=== PATIENT | male | born 1955 | race Asian ===

== ENCOUNTER 2019-10-28 15:01 | Emergency (ER) | payer OTHER ==
[2019-10-28 15:20] VITALS: BP 139/83; PULSE 89; TEMP 98.9; BMI 28.5
[2019-10-28] MEDS ORDERED: LIDOCAINE 2.5%/PRILOCAINE 2.5% 30 GRAM TUBE TP ONE (17:01)
[2019-10-28] MEDS ORDERED: IBUPROFEN 400 MG TABLET (FP) PO ONE ×2 (17:21→17:37)
--- NOTE | 2019-10-28 17:21 | PDOC ---
History of Present Illness - General Chief Complaint: Rectal Bleed Stated Complaint: RECTAL BLEED Time Seen by Provider: 10/28/19 15:32 - History of Present Illness Initial Comments: HPI Pt is a 64 yo M with PMH of HTN, HLD, NIDDM, L sided nephrolithiasis in the past, external hemorrhoid (s/p resection many years ago) presenting with 2 month hx of rectal bleeding/pain and perineal pain. Rectal Bleeding/Pain: Pt reports rectal bleeding and rectal pain started gradually about 2 months ago. The pain was mild at first and gradually worsened; pain is now severe (10/10) and makes it difficult to sit. Bleeding is described as streaks on stool and small drops of blood in the toilet. Pt also reports noticing small amounts of blood in his underwear as well. Associated increased constipation (hard stool, BMs every 3 days instead of baseline daily) over same duration. Pt has tried sitz baths (3-4 times daily) and has utilized advil and recent short course of toradol (2-3 doses) with some relief; put the pain has persisted. Pt has taken some oral stool softeners, preparation H, and some oral remedies as well. All with only some relief of his symptoms. Denies diarrhea, fevers, chills, CP, SOB, nausea, vomiting, or abdominal pain. Perineal Pain: Pt report perineal pain that started gradually about 2 mounth ago. The pain is moderate to severe in intensity and intermittent; with radiation to scrotal area. Pt describes the pain as internal and not really painful to touch. Pain is worsen when seated and lying down. Pt reports that the pain is very bothersome while he is sleeping. Pt's reports that there was possible mild swelling of perineal and scrotal area several weeks ago which resolved spontaneously. Pt reports he is also having increased straining with urination as well. No associated penile discharge, STI history, dysuria, or urinary frequency. PMHX: as in HPI - ongoing outpatient workup for hematuria and BPH with urology; scheduled for CT A/P + Bladder U/S for urology tomorrow PSHX: as in HPI Meds: Home Medications Medication Instructions Recorded Aspirin [ASA -] 81 mg PO DAILY 11/04/13 Glyburide/Metformin HCl 1 each PO TID 11/04/13 [Glyburide-Metformin 5-500 mg] Losartan Potassium 50 mg PO DAILY 11/04/13 Simvastatin [Zocor -] 20 mg PO HS 11/04/13 Tamsulosin HCl [Flomax] 0.4 mg PO HS #30 capsule 11/04/13 Allergies: amoxicillin Tob: 1 ppd x 30 years; no longer smoking, vapes as a substitute Etoh: stopped drinking alcohol 3 months ago; used to drink "small amount of Whiskey on the rocks" daily Rec drugs: denies PCP: Dr. Ebony MELTON GENERAL/CONSTITUTIONAL: No fever or chills. No weakness. HEAD, EYES, EARS, NOSE AND THROAT: No change in vision. No ear pain or discharge. No sore throat. CARDIOVASCULAR: No chest pain or shortness of breath RESPIRATORY: No cough, wheezing, or hemoptysis. GASTROINTESTINAL: No nausea, vomiting, diarrhea. + constipation, + rectal bleeding GENITOURINARY: No dysuria, frequency, + increased straining, + increased perineal pain MUSCULOSKELETAL: No joint or muscle swelling or pain. No neck or back pain. SKIN: No rash NEUROLOGIC: No headache, vertigo, loss of consciousness, or change in strength/sensation. ENDOCRINE: No increased thirst. No abnormal weight change HEMATOLOGIC/LYMPHATIC: No anemia, easy bleeding, or history of blood clots. ALLERGIC/IMMUNOLOGIC: No hives or skin allergy. PE GENERAL: Awake, alert, and fully oriented, in no acute distress HEAD: No signs of trauma, normocephalic, atraumatic EYES: PERRLA, EOMI, sclera anicteric, conjunctiva clear ENT: Auricles normal inspection, hearing grossly normal, nares patent, oropharyn x clear without exudates. Moist mucosa NECK: Normal ROM, supple, no lymphadenopathy, JVD, or masses LUNGS: No distress, speaks full sentences, clear to auscultation bilaterally HEART: Regular rate and rhythm, normal S1 and S2, no murmurs, rubs or gallops, peripheral pulses normal and equal bilaterally. ABDOMEN: Soft, nontender, normoactive bowel sounds. No guarding, no rebound. No masses MELL: soft, mobile tender non-bleeding, non-thrombosed external hemorrhoid @ 11 oclock; no other external abnormalities noted; good rectal tone; scant stool in rectal vault; soft, mobile tender and bleeding internal hemorrhoid @ 12 oclock; jose j blood from internal hemorrhoid appreciated. : no scrotal edema, no scrotal tenderness, no masses palpated; no perineal tenderness; no erythema or other discoloration appreciated EXTREMITIES : Normal inspection, Normal range of motion, no edema. No clubbing or cyanosis. NEUROLOGICAL: Cranial nerves II through XII grossly intact. Normal speech, normal gait, no focal sensorimotor deficits SKIN: Warm, Dry, normal turgor, no rashes or lesions noted 10/28/19 18:02 10/28/19 18:10 Past History - Medical History Allergies/Adverse Reactions: Allergies Allergy/AdvReac Type Severity Reaction Status Date / Time amoxicillin Allergy Verified 10/28/19 15:14 Home Medications: Ambulatory Orders Aspirin [ASA -] 81 mg PO DAILY 11/04/13 Glyburide/Metformin HCl [Glyburide-Metformin 5-500 mg] 1 each PO TID 11/04/13 Losartan Potassium 50 mg PO DAILY 11/04/13 Simvastatin [Zocor -] 20 mg PO HS 11/04/13 Tamsulosin HCl [Flomax] 0.4 mg PO HS #30 capsule 11/04/13 Hydrocortisone 2.5% Topical Cr [Anusol 2.5% Hc Cream -] 1 applic RC BID #1 tube 10/28/19 Lidocaine [Hemorrhoidal Relief] 30 gm TP Q4HWA PRN #1 cream..g. 10/28/19 Sennosides/Docusate Sodium [Senokot-S Tablet] 2 each PO HS PRN 7 Days #14 tablet 10/28/19 COPD: No Diabetes: Yes HTN: Yes Hypercholesterolemia: Yes Kidney Stones: Yes - Immunization History Immunization Up to Date: Yes - Psycho-Social/Smoking History Smoking History: Current every day smoker Have you smoked in the past 12 months: No Number of Cigarettes Smoked Daily: 10 Information on smoking cessation initiated: No - Substance Abuse Hx (Audit-C & DAST Scrn) How often the patient has a drink containing alcohol: Never Score: In Men: 4 or > Positive; In Women: 3 or > Positive: 0 Screen Result (Pos requires Nsg. Audit-10AR): Negative In the last yr the pt used illegal drug/Rx for NonMed reason: No Score: Yes response is considered Positive: 0 Screen Result (Positive result requires Nsg. DAST-10): Negative *Physical Exam - Vital Signs Last Vital Signs Temp Pulse Resp BP Pulse Ox 98.9 F 89 20 139/83 100 10/28/19 15:14 10/28/19 15:14 10/28/19 15:14 10/28/19 15:14 10/28/19 15:14 ED Treatment Course - LABORATORY CBC & Chemistry Diagram: 10/28/19 16:30 10/28/19 16:30 - RADIOLOGY Radiology Studies Ordered: Category Date Time Status SCROTUM AND CONTENTS US [US] Stat Ultrasound 10/28/19 17:00 Ordered Medical Decision Making - Medical Decision Making MDM Pt is a 64 yo M with PMH of HTN, HLD, NIDDM, L sided nephrolithiasis in the past, external hemorrhoid (s/p resection many years ago) presenting with 2 month hx of rectal bleeding/pain and perineal pain. Eval significant for external hemorrhoid and bleeding internal hemorrhoid. Guaiac is positive, but no hematochezia, melena or tarry stools DDX including but not limited to: external hemorrhoid, internal hemorrhoid W/U: -CBC, CMP, FOBT -scrotal US TX: - motrin for pain - emla topical for analgesia - anticipate discharge with GI follow up; improved analgesia regimen 10/28/19 18:12 Scrotal US - with mild hydroceles and mild epididymal cysts; pt will follow up with his urologists regarding this Pt is being discharged with outpatient follow up 10/28/19 19:46 Discharge - Discharge Information Problems reviewed: Yes Clinical Impression/Diagnosis: Hemorrhoid, Bleeding internal hemorrhoids, External hemorrhoids without com plication Condition: Good Disposition: HOME - Admission No - Additional Discharge Information Prescriptions: Hydrocortisone 2.5% Topical Cr [Anusol 2.5% Hc Cream -] 1 applic RC BID #1 tube Lidocaine [Hemorrhoidal Relief] 30 gm TP Q4HWA PRN #1 cream..g. PRN Reason: Pain Level 7 - 10 Sennosides/Docusate Sodium [Senokot-S Tablet] 2 each PO HS PRN 7 Days #14 tablet PRN Reason: Constipation - Follow up/Referral Referrals: Reji Perales DO [Staff Physician] - Carlos Alberto Posada MD [Staff Physician] - Hetal Matamoros MD [Staff Physician] - Michael Blanco MD [Staff Physician] - Maggie May DO [Staff Physician] - Ebony Vincent MD [Primary Care Provider] - - Patient Discharge Instructions Patient Printed Discharge Instructions: DI for Hemorrhoids, DI for Rectal Bleeding Additional Instructions: You were seen in the ED for complaints of rectal bleeding/pain + iris yesenia/scrotal pain. In the ED you were evaluated with a rectal examination, CBC, CMP, and stool for occult blood. Also with a scrotal US. Your results showed + blood in stool; CBC with normal Hemoglobin levels. Scrotal US with findings shown on printout - follow up with Urology. There does not appear to be an acute need for immediate hospitalization. You are advised to follow up with your Primary Care Physician within 1 week. You were given a referral to Dr. Blanco, a GI doctor. Please follow up with him within 1 week. Follow up with your Urologist, Dr. Posada within 1 week. You were given a prescription for Anusol, Senokot, and Topical Lidocaine. Please return to the ED if significant increase in pain and bleeding from rectal area or significant increase in pain in scrotal/perineal area, or swelling/discoloration of scrotum. - Post Discharge Activity
--- NOTE | 2019-10-28 18:03 | PDOC ---
Documentation entered by Willie Dixon SCRIBE, acting as scribe for Luz Maria Andre MD. Luz Maria Andre MD: This documentation has been prepared by the Elizabeth lyons inWillie SCRIBE, under my direction and personally reviewed by me in its entirety. I confirm that the documentation accurately reflects all work, treatment, procedures, and medical decision making performed by me. Attending Attestation - Resident Resident Name: RadhaRena askew - ED Attending Attestation I have performed the following: I have examined & evaluated the patient, The case was reviewed & discussed with the resident, I agree w/resident's findings & plan, Exceptions are as noted - HPI HPI: 10/28/19 17:39 The patient is a 64 year old male with a significant past medical history of diabetes, HTN, HLD, left sided kidney stones, right staghorn calculus surgery, and external hemorrhoid (s/p former resection) who presents to the emergency department for evaluation of worsening rectal bleeding that began two months ago. The patient reports streaks of blood in his stool, the toilet, and his clothing. He endorses associated constipation and worsening rectal and perineal pain that is now 10/10 and makes sitting difficult. The patient notes taking Advil and sitz baths. Denies fever, chills, chest pain, SOB, palpitation, dizziness, weakness, N, V, D, abdominal pain, bladder problems, focal weakness/paresthesias, leg swe lling/pain, rash. No sick contacts or travel. No new changes in medications. No suspicious food intake Allergies: amoxicillin Past Medical History/PSH: diabetes, HTN, HLD, left sided kidney stones, right staghorn calculus surgery, and external hemorrhoid (s/p former resection) Social history: Lives with family. No tobacco, ETOH or drug use. Meds: as documented in EMR Family history: noncontributory PMD: Dr. Vincent - Physicial Exam PE: 10/28/19 17:14 General: Well appearing, awake and alert, NAD. HEENT: NCAT, PERRL, EOMI, clear conjunctiva, anicteric, moist mucus membranes, clear oropharynx, no oral lesions.. Neck: neck supple, FROM Resp: CTAB, normal and even respirations, no respiratory distress CVS: RRR, no murmurs, 2+ peripheral pulses throughout, no peripheral edema Abdomen: soft, NTND, no rebound or guarding. No CVAT. Rectal: internal hemorrhoid with some bleeding at 12 o'clock. external soft nonthrombosed hemorrhoid at 11 oclock position enlarged prostate : right testicular/perineal tenderness, normal lie, no effusion or swelling or scrotal discoloration Back: nontender, normal inspection and ROM MSK: no edema, CHAPIN x4, ROM intact. No clubbing or cyanosis. normal bulk and tone. Extremities: no calf tenderness Neuro: alert, oriented appropriately; no focal neurologic deficits Psych: Calm and cooperative Skin: warm and well perfused, cap refill <2 sec, normal color 10/28/19 18:01 - Medical Decision Making 10/28/19 18:02 Vital Signs Temp Pulse Resp BP Pulse Ox 98.9 F 89 20 139/83 100 10/28/19 15:14 10/28/19 15:14 10/28/19 15:14 10/28/19 15:14 10/28/19 15:14 pt likely with hemorrhoidal bleed, +tender internal hemorrhoid palpated at 12 oclock position check labs and lytes cbc NORMAL. Cr is baseline. 1.4 guaiac is positive, but no hematochezia, melena or tarry stools no active bleeding. +hemorrhoid is palpated internally and quite tender with scant bleeding. no abdominal tenderness check scrotal ultrasound unremarkable, b/l small hydrocele and epididymal cysts - can follow up with urology tomorrow. anticipate discharge with GI followup/referrals and analgesia regimen rx anusol, lidocaine via rectum for analgesia, otc analgesia no opioids, as risk of constipation and worsening hemorrhoids 10/28/19 19:00 10/28/19 19:25 Discharge - Discharge Information Problems reviewed: Yes Clinical Impression/Diagnosis: Hemorrhoid, Bleeding internal hemorrhoids, External hemorrhoids without complication Condition: Good Disposition: HOME - Additional Discharge Information Prescriptions: Hydrocortisone 2.5% Topical Cr [Anusol 2.5% Hc Cream -] 1 applic RC BID #1 tube Lidocaine [Hemorrhoidal Relief] 30 gm TP Q4HWA PRN #1 cream..g. PRN Reason: Pain Level 7 - 10 Sennosides/Docusate Sodium [Senokot-S Tablet] 2 each PO HS PRN 7 Days #14 tablet PRN Reason: Constipation - Follow up/Referral Referrals: Michael Blanco MD [Staff Physician] - Ebony Vincent MD [Primary Care Provider] - Hetal Matamoros MD [Staff Physician] - Reji Perales DO [Staff Physician] - Maggie May DO [Staff Physician] - Carlos Alberto Posada MD [Staff Physician] - - Patient Discharge Instructions Patient Printed Discharge Instructions: DI for Hemorrhoids, DI for Rectal Bleeding Additional Instructions: You were seen in the ED for complaints of rectal bleeding/pain + perineal/scrotal pain. In the ED you were evaluated with a rectal examination, CBC, CMP, and stool for occult blood. Also with a scrotal US. Your results showed + blood in stool; CBC with normal Hemoglobin levels. Scrotal US with findings shown on printout - follow up with Urology. There does not appear to be an acute need for immediate hospitalization. You are advised to follow up with your Primary Care Physician within 1 week. You were given a referral to Dr. Blanco, a GI doctor. Please follow up with him within 1 week. Follow up with your Urologist, Dr. Posada within 1 week. You were given a prescription for Anusol, Senokot, and Topical Lidocaine. Please return to the ED if significant increase in pain and bleeding from rectal area or significant increase in pain in scrotal/perineal area, or swelling/discoloration of scrotum. - Post Discharge Activity
[2019-10-28 18:22] LABS: BASO % 0.5 % (0-2.0); EOS % 0.8 % (0-4.5); HEMATOCRIT 38.2 % (35.4-49); HEMOGLOBIN 12.9 GM/dL (11.7-16.9); LYMPH % 23.2 % (8-40); MCH 30.1 pg (25.7-33.7); MCHC 33.7 g/dl (32.0-35.9); MEAN CELL VOLUME 89.2 fl (80-96); MEAN PLT VOLUME 9.3 fl (7.5-11.1); MONO % 8.9 % (3.8-10.2); NEUT % 66.6 % (42.8-82.8); PLATELET COUNT 261 K/MM3 (134-434); RBC 4.28 M/mm3 (4.00-5.60); RDW 13.1 % (11.9-15.9); WHITE BLOOD COUNT 6.9 K/mm3 (4.0-10.0)
[2019-10-28 18:55] LABS: ALBUMIN 3.7 g/dl (3.4-5.0); BILIRUBIN,TOTAL 0.4 mg/dL (0.2-1); BLOOD UREA NITROGEN 19.8 mg/dL (7-18); CREATININE 1.4 mg/dL (0.55-1.3); POTASSIUM 4.3 mmol/L (3.5-5.1); TOT PROT 6.8 g/dl (6.4-8.2)
[2019-11-01] MEDS ORDERED: MORPHINE SULFATE 2 MG/ML VIAL ONE (16:39)
[2019-11-01] MEDS ORDERED: ACETAMINOPHEN INJECTION 100 ML IVPB ONE (16:39)
== END 2019-10-28 20:40 | disposition home or self-care (01) ==
LOC: JER 15:01
DX: K64.8 Other hemorrhoids (principal)
CPT/HCPCS: 36415; 76870-TC; 80053; 82272; 85025; 99283-25

== ENCOUNTER 2019-11-01 12:16 | Emergency (ER) | payer OTHER ==
[2019-11-01 12:22] VITALS: BP 129/84; PULSE 82; TEMP 98.4; BMI 28.1
--- NOTE | 2019-11-01 12:22 | PDOC ---
Rapid Medical Evaluation Chief Complaint: Pain Time Seen by Provider: 11/01/19 12:18 Medical Evaluation: Allergies Allergy/AdvReac Type Severity Reaction Status Date / Time amoxicillin Allergy Verified 11/01/19 12:18 11/01/19 12:19 I have performed a brief in-person evaluation of this patient. The patient presents with a chief complaint of: h/o hemorrhoids recently for bleeding hemorrhoids present with complains of rectal pain keeping him up at night. pt was supposed to f/u with PCP but has not followed up. pt also report unable to void freely without taking flomax. pt with h/o BPH. Denies rectal bleeding now Pertinent physical exam findings: A&O x 3 in NAD. Afebrile I have ordered the following: deferred The patient will proceed to the ED for further evaluation. Discharge Disposition - Diagnosis Rectal pain Hemorrhoid Qualifiers: Hemorrhoid type: unspecified Qualified Code(s): K64.9 - Unspecified hemorrhoids - Discharge Dispostion Condition at time of disposition: Stable - Referrals - Patient Instructions - Post Discharge Activity
--- NOTE | 2019-11-01 13:26 | PDOC ---
History of Present Illness <Luz Maria Andre - Last Filed: 11/01/19 15:48> - General History Source: Patient Exam Limitations: No Limitations <Kady Perez - Last Filed: 11/01/19 15:59> - General Chief Complaint: Pain, Acute Stated Complaint: RECTAL BLEEDING Time Seen by Provider: 11/01/19 12:18 Past History <Luz Maria Andre - Last Filed: 11/01/19 15:48> - Travel History Traveled outside of the country in the last 30 days: No Close contact w/someone who was outside of country & ill: No - Medical History COPD: No Diabetes: Yes HTN: Yes Hypercholesterolemia: Yes Kidney Stones: Yes - Immunization History Immunization Up to Date: Yes - Psycho-Social/Smoking History Smoking History: Current every day smoker Have you smoked in the past 12 months: No Number of Cigarettes Smoked Daily: 10 Information on smoking cessation initiated: No - Substance Abuse Hx (Audit-C & DAST Scrn) How often the patient has a drink containing alcohol: Never Score: In Men: 4 or > Positive; In Women: 3 or > Positive: 0 Screen Result (Pos requires Nsg. Audit-10AR): Negative In the last yr the pt used illegal drug/Rx for NonMed reason: No Score: Yes response is considered Positive: 0 Screen Result (Positive result requires Nsg. DAST-10): Negative <Kady Perez - Last Filed: 11/01/19 15:59> - Medical History Allergies/Adverse Reactions: Allergies Allergy/AdvReac Type Severity Reaction Status Date / Time amoxicillin Allergy Verified 11/01/19 12:18 Home Medications: Ambulatory Orders Aspirin [ASA -] 81 mg PO DAILY 11/04/13 Glyburide/Metformin HCl [Glyburide-Metformin 5-500 mg] 1 each PO TID 11/04/13 Losartan Potassium 50 mg PO DAILY 11/04/13 Simvastatin [Zocor -] 20 mg PO HS 11/04/13 Tamsulosin HCl [Flomax] 0.4 mg PO HS #30 capsule 11/04/13 Hydrocortisone 2.5% Topical Cr [Anusol 2.5% Hc Cream -] 1 applic RC BID #1 tube 10/28/19 Lidocaine [Hemorrhoidal Relief] 30 gm TP Q4HWA PRN #1 cream..g. 10/28/19 Sennosides/Docusate Sodium [Senokot-S Tablet] 2 each PO HS PRN 7 Days #14 tablet 10/28/19 Review of Systems - Review of Systems Able to Perform ROS?: Yes Comments:: 11/01/19 13:52 CONSTITUTIONAL: Absent: fever, chills, diaphoresis, generalized weakness, malaise, loss of appetite HEENT: Absent: rhinorrhea, nasal congestion, throat pain, throat swelling, difficulty swallowing, mouth swelling, ear pain, eye pain, visual Changes CARDIOVASCULAR: Absent: chest pain, loss of consciousness, palpitations, irregular heart rate, peripheral edema RESPIRATORY: Absent: cough, shortness of breath, dyspnea with exertion, orthopnea, wheezing, stridor, hemoptysis GASTROINTESTINAL: Present: rectal pain Absent: abdominal pain, abdominal distension, nausea, vomiting, diarrhea, constipation, melena, hematochezia GENITOURINARY: Absent: dysuria, frequency, urgency, hesitancy, hematuria, flank pain, genital pain MUSCULOSKELETAL: Absent: myalgia, arthralgia, joint swelling SKIN: Absent: rash, itching, pallor HEMATOLOGIC/IMMUNOLOGIC: Absent: easy bleeding, easy bruising, lymphadenopathy, frequent infections ENDOCRINE: Absent: unexplained weight gain, unexplained weight loss, heat intolerance, cold intolerance NEUROLOGIC: Absent: headache, focal weakness or paresthesias, dizziness, unsteady gait, seizure, mental status changes, bladder or bowel incontinence PSYCHIATRIC: Absent: anxiety, depression, suicidal or homicidal ideation, hallucinations. Is the patient limited Nepali proficient: No <Kady Perez - Last Filed: 11/01/19 15:59> *Physical Exam - Vital Signs Last Vital Signs Temp Pulse Resp BP Pulse Ox 98.4 F 82 20 129/84 100 11/01/19 12:20 11/01/19 12:20 11/01/19 12:20 11/01/19 12:20 11/01/19 12:20 <Luz Maria Andre - Last Filed: 11/01/19 15:48> - Vital Signs Last Vital Signs Temp Pulse Resp BP Pulse Ox 98.4 F 82 20 129/84 100 11/01/19 12:20 11/01/19 12:20 11/01/19 12:20 11/01/19 12:20 11/01/19 12:20 - Physical Exam 11/01/19 15:52 GENERAL: Well developed, well nourished. Awake and alert. No acute distress. HEENT: Normocephalic, atraumatic. PERRLA, EOMI. No conjunctival pallor. Sclera are non- icteric. Moist mucous membranes. NECK: Supple. Full ROM. No lymphadenopathy. CARDIOVASCULAR: Regular rate and rhythm. No murmurs, rubs, or gallops. Distal pulses are 2+ and symmetric. PULMONARY: No evidence of respiratory distress. Lungs clear to auscultation bilaterally. No wheezing, rales or rhonchi. ABDOMINAL: Soft. Non-tender. Non-distended. No rebound or guarding. No organomegaly. Normoactive bowel sounds. RECTAL: External hemorrhoid present at the 12 o'clock position; Hard non-mobile internal mass at the 12 O'clock position. No Lex blood MUSCULOSKELETAL Normal range of motion at all joints. No bony deformities or tenderness. No CVA tenderness. EXTREMITIES: No cyanosis. No clubbing. No edema. No calf tenderness. SKIN: Warm and dry. Normal capillary refill. No rashes. No jaundice. NEUROLOGICAL: Alert, awake, appropriate. Cranial nerves 2-12 intact. No deficits to light touch and temperature in face, upper extremities and lower extremities. No motor deficits in the in face, upper extremities and lower extremities. Normoreflexic in the upper and lower extremities. Normal speech. Toes are down-going bilaterally. Gait is normal without ataxia. PSYCHIATRIC: Cooperative. Good eye contact. Appropriate mood and affect. <Kady Perez - Last Filed: 11/01/19 15:59> ED Treatment Course - ADDITIONAL ORDERS Additional order review: Laboratory Results 11/01/19 13:30 Stool Occult Blood Negative - Medications Given in the ED: ED Medications Discontinued Medications Generic Name Dose Route Start Last Admin Trade Name Freq PRN Reason Stop Dose Admin Oxycodone/Acetaminophen 1 combo 11/01/19 13:26 11/01/19 13:49 Percocet 5/325 - PO 11/01/19 13:27 1 combo ONCE ONE Administration <Luz Maria Andre - Last Filed: 11/01/19 15:48> Medical Decision Making - Medical Decision Making 11/01/19 14:29 The patient was seen and evaluated in conjunction with midlevel provider under my direct supervision, ancillary studies were reviewed. I agree with the plan as outlined MADAY Perez. HPI, workup/dispo as outlined. VS reviewed, wnl. has outpatient CT a/p pending read from 10/29/19 11/01/19 15:48 <Luz Maria Andre - Last Filed: 11/01/19 15:48> - Medical Decision Making 11/01/19 13:55 The patient is a 64-year-old male who presents to the ER for reevaluation of rectal pain. He states that this is been ongoing for a week. He was seen in this ER and diagnosed with a hemorrhoid. He was given multiple creams which she states are not helping his pain. He states he has a GI appointment on for further evaluation of his hemorrhoids. He states there is been an improvement in his blood in his stool. Patient also endorses urinary frequency for which he is seeing his urologist. Denies fevers, chills, nausea, vomiting and abdominal pain. A/P: Rectal mass On exam patient is an external hemorrhoid at the 12:00 region soft non-firm. On internal rectal exam there is a hard mass felt at the 12 o'clock position, likely thrombosed hemorrhoid versus mass. Patient states he has not had a colonoscopy. Reassure patient, pain control oxycodone given per request. Advised this can make his hemorrhoid worse. Stool for occult blood negative today, Vital signs are stable. Patient to follow-up with GI on as scheduled. I discussed the physical exam findings, ancillary test results and final diagnoses with the patient. I answered all of the patient's questions. The patient was satisfied with the care received and felt comfortable with the discharge plan and treatment plan. The Patient agrees to follow up with the primary care physician/specialist within 24-72 hours. Return precautions were given. <Kady Perez - Last Filed: 11/01/19 15:59> Discharge <Luz Maria Andre - Last Filed: 11/01/19 15:48> - Discharge Information Problems reviewed: Yes - Admission No <Kady Perez - Last Filed: 11/01/19 15:59> - Discharge Information Clinical Impression/Diagnosis: Rectal pain Hemorrhoid Qualifiers: Hemorrhoid type: unspecified Qualified Code(s): K64.9 - Unspecified hemorrhoids Condition: Stable Disposition: HOME - Follow up/Referral Referrals: Ebony Vincent MD [Primary Care Provider] - Michael Blanco MD [Staff Physician] - - Patient Discharge Instructions Patient Printed Discharge Instructions: DI for Hemorrhoids Additional Instructions: You were seen for your hemorrhoids today. You need to follow-up with GI on as previously arranged. Please continue all your home medications as directed. You may take the Toradol you have prescribed to you 10 mg every 8 hours for pain control. Do not take Motrin and Toradol at the same time as they are the same class of medication Continue all lidocaine creams to the area and sits baths. Return to the ER if you are unable to void stool, if you have fevers, or if you have any change in your symptoms - Post Discharge Activity
== END 2019-11-01 14:51 | disposition home or self-care (01) ==
LOC: JER 12:16
DX: K64.9 Unspecified hemorrhoids (principal)
CPT/HCPCS: 36415; 82272; 99283-25

== ENCOUNTER 2019-11-01 15:53 | Inpatient (IN) | payer OTHER ==
[2019-11-01] MEDS ORDERED: ACETAMINOPHEN 1000 MG/100 ML VIAL (NON FORMULARY) IVPB ONE (16:00)
[2019-11-01] MEDS ORDERED: SODIUM CHLORIDE 1,000 ML IV STA (16:00)
--- NOTE | 2019-11-01 16:01 | PDOC ---
History of Present Illness - General History Source: Patient Exam Limitations: No Limitations <Kady Perez - Last Filed: 11/01/19 18:37> <Luz Maria Andre - Last Filed: 11/01/19 18:54> - General Chief Complaint: Revisit, Lab Variance Stated Complaint: SENT BY PCP Time Seen by Provider: 11/01/19 15:59 Past History - Travel History Traveled outside of the country in the last 30 days: No Close contact w/someone who was outside of country & ill: No - Medical History COPD: No Diabetes: Yes HTN: Yes Hypercholesterolemia: Yes Kidney Stones: Yes - Immunization History Immunization Up to Date: Yes - Psycho-Social/Smoking History Smoking History: Never smoked Have you smoked in the past 12 months: No Number of Cigarettes Smoked Daily: 10 <Kady Perez - Last Filed: 11/01/19 18:37> <Luz Maria Andre - Last Filed: 11/01/19 18:54> - Medical History Allergies/Adverse Reactions: Allergies Allergy/AdvReac Type Severity Reaction Status Date / Time amoxicillin Allergy Verified 11/01/19 12:18 Home Medications: Ambulatory Orders Aspirin [ASA -] 81 mg PO DAILY 11/04/13 Glyburide/Metformin HCl [Glyburide-Metformin 5-500 mg] 1 each PO TID 11/04/13 Losartan Potassium 50 mg PO DAILY 11/04/13 Simvastatin [Zocor -] 20 mg PO HS 11/04/13 Tamsulosin HCl [Flomax] 0.4 mg PO HS #30 capsule 11/04/13 Hydrocortisone 2.5% Topical Cr [Anusol 2.5% Hc Cream -] 1 applic RC BID #1 tube 10/28/19 Lidocaine [Hemorrhoidal Relief] 30 gm TP Q4HWA PRN #1 cream..g. 10/28/19 Sennosides/Docusate Sodium [Senokot-S Tablet] 2 each PO HS PRN 7 Days #14 tablet 10/28/19 Review of Systems - Review of Systems Able to Perform ROS?: Yes Comments:: 11/01/19 18:37 CONSTITUTIONAL: Absent: fever, chills, diaphoresis, generalized weakness, malaise, loss of appetite HEENT: Absent: rhinorrhea, nasal congestion, throat pain, throat swelling, difficulty swallowing, mouth swelling, ear pain, eye pain, visual Changes CARDIOVASCULAR: Absent: chest pain, loss of consciousness, palpitations, irregular heart rate, peripheral edema RESPIRATORY: Absent: cough, shortness of breath, dyspnea with exertion, orthopnea, wheezing, stridor, hemoptysis GASTROINTESTINAL: Present: Rectal pain. Absent: abdominal pain, abdominal distension, nausea, vomi ting, diarrhea, constipation, melena, hematochezia GENITOURINARY: Absent: dysuria, frequency, urgency, hesitancy, hematuria, flank pain, genital pain MUSCULOSKELETAL: Absent: myalgia, arthralgia, joint swelling SKIN: Absent: rash, itching, pallor HEMATOLOGIC/IMMUNOLOGIC: Absent: easy bleeding, easy bruising, lymphadenopathy, frequent infections ENDOCRINE: Absent: unexplained weight gain, unexplained weight loss, heat intolerance, cold intolerance NEUROLOGIC: Absent: headache, focal weakness or paresthesias, dizziness, unsteady gait, seizure, mental status changes, bladder or bowel incontinence PSYCHIATRIC: Absent: anxiety, depression, suicidal or homicidal ideation, hallucinations. Is the patient limited Yakut proficient: No <Kady Perez - Last Filed: 11/01/19 18:37> *Physical Exam - Vital Signs Last Vital Signs Temp Pulse Resp BP Pulse Ox 76 18 107/67 99 11/01/19 15:55 11/01/19 15:55 11/01/19 15:55 11/01/19 15:55 - Physical Exam 11/01/19 18:38 GENERAL: Well developed, well nourished. Awake and alert. No acute distress. HEENT: Normocephalic, atraumatic. PERRLA, EOMI. No conjunctival pallor. Sclera are non- icteric. Moist mucous membranes. Oropharynx is clear. NECK: Supple. Full ROM. No JVD. Carotid pulses 2+ and symmetric, without bruits. No thyromegaly. No lymphadenopathy. CARDIOVASCULAR: Regular rate and rhythm. No murmurs, rubs, or gallops. Distal pulses are 2+ and symmetric. PULMONARY: No evidence of respiratory distress. Lungs clear to auscultation bilaterally. No wheezing, rales or rhonchi. ABDOMINAL: Soft. Non-tender. Non-distended. No rebound or guarding. No organomegaly. Normo active bowel sounds. MUSCULOSKELETAL Normal range of motion at all joints. No bony deformities or tenderness. No CVA tenderness. EXTREMITIES: No cyanosis. No clubbing. No edema. No calf tenderness. SKIN: Warm and dry. Normal capillary refill. No rashes. No jaundice. NEUROLOGICAL: Alert, awake, appropriate. Cranial nerves 2-12 intact. No deficits to light touch and temperature in face, upper extremities and lower extremities. No motor deficits in the in face, upper extremities and lower extremities. Normoreflexic in the upper and lower extremities. Normal speech. Toes are down-going bilat erally. Gait is normal without ataxia. PSYCHIATRIC: Cooperative. Good eye contact. Appropriate mood and affect. <Kady Perez - Last Filed: 11/01/19 18:37> - Vital Signs Last Vital Signs Temp Pulse Resp BP Pulse Ox 76 18 107/67 99 11/01/19 15:55 11/01/19 15:55 11/01/19 15:55 11/01/19 15:55 <Luz Maria Andre - Last Filed: 11/01/19 18:54> ED Treatment Course - LABORATORY CBC & Chemistry Diagram: 11/01/19 17:10 11/01/19 17:10 <Kady Perez - Last Filed: 11/01/19 18:37> - LABORATORY CBC & Chemistry Diagram: 11/01/19 17:10 11/01/19 17:10 - Medications Given in the ED: ED Medications Discontinued Medications Generic Name Dose Route Start Last Admin Trade Name Gloria PRN Reason Stop Dose Admin Acetaminophen 1,000 mg 11/01/19 16:00 11/01/19 16:55 Ofirmev Injection - IVPB 11/01/19 16:01 1,000 mg ONCE ONE Administration Sodium Chloride 1,000 mls @ 1,000 mls/hr 11/01/19 16:00 11/01/19 16:30 Normal Saline - IV 11/01/19 16:59 1,000 mls/hr ASDIR STA Administration Morphine Sulfate 4 mg 11/01/19 16:08 11/01/19 16:40 Morphine Injection - IVPUSH 11/01/19 16:09 4 mg ONCE ONE Administration Ondansetron HCl 4 mg 11/01/19 16:08 11/01/19 18:00 Zofran Injection IVPUSH 11/01/19 16:09 4 mg ONCE ONE Administration <Luz Maria Andre - Last Filed: 11/01/19 18:54> Medical Decision Making - Medical Decision Making 11/01/19 18:41 The patient is a 64-year-old male with past medical history of diabetes, hypertension, hyperlipidemia, kidney stones, external hemorrhoid, presents to the ER again today for increasing rectal pain. He states that after his visit he went to Dr. Posada for follow-up on his visit from 10/29/2019. His CAT scan results had now resulted and was sent back to the ER for "pain control ". A/P: Metastatic cancer CAT scan report now reviewed. Resulted after patient had been discharged from the ER earlier today. CAT scan shows multiple bilateral pulmonary masses suspicious for metastatic disease Posterior mediastinal mass suspicious for subcarinal lymphadenopathy. Diffuse fatty infiltration of the liver with suspected hepatic metastasis. Left-sided pelvic mass that may be originating or involving the prostate gland. The mass is most likely represents left pelvic lymphadenopathy. Clinical correlation and continued follow-up recommended. Possibility of a prostatic lesion cannot be excluded Given setting of new onset metastatic cancer with hemorrhoid/rectal mass felt earlier today, will admit for cancer work-up with unknown origin. Case discussed with Dr. Ebony Ramos. Morphine for pain control <Kady Perez - Last Filed: 11/01/19 18:37> - Medical Decision Making The patient was seen and evaluated in conjunction with midlevel provider under my direct supervision, ancillary studies were reviewed. I agree with the plan as outlined MADAY Perez. HPI, workup/dispo as outlined. VS reviewed, wnl. pt had outpatient CT scan showing pelvic mass, lymphadenopathy, lung lesions, needs malignancy workup and pain control. repeat labs admit Dr Vincent for malignancy workup given outpatient study/CT imaging from 10/29/19 11/01/19 18:53 <Luz Maria Andre - Last Filed: 11/01/19 18:54> Discharge - Discharge Information Problems reviewed: Yes - Admission Yes <Kady Perez - Last Filed: 11/01/19 18:37> <Luz Maria Andre - Last Filed: 11/01/19 18:54> - Discharge Information Clinical Impression/Diagnosis: Rectal pain Metastatic cancer Qualifiers: Area of secondary neoplastic involvement: unspecified site Qualified Code(s): C79.9 - Secondary malignant neoplasm of unspecified site Condition: Guarded
[2019-11-01] MEDS ORDERED: ONDANSETRON 4 MG/2 ML VIAL IVPUSH ONE (16:08)
[2019-11-01] MEDS ORDERED: morphine CARPU-JECT 4 MG/1 ML DISP.SYRIN IVPUSH ONE (16:08)
[2019-11-01] MEDS ORDERED: morphine CARPU-JECT 4 MG/1 ML DISP.SYRIN IVPUSH PRN (16:27)
[2019-11-01 17:48] LABS: BASO % 0.3 % (0-2.0); EOS % 0.8 % (0-4.5); HEMATOCRIT 37.2 % (35.4-49); HEMOGLOBIN 12.8 GM/dL (11.7-16.9); LYMPH % 25.3 % (8-40); MCH 30.4 pg (25.7-33.7); MCHC 34.3 g/dl (32.0-35.9); MEAN CELL VOLUME 88.7 fl (80-96); MEAN PLT VOLUME 9.1 fl (7.5-11.1); MONO % 9.1 % (3.8-10.2); NEUT % 64.5 % (42.8-82.8); PLATELET COUNT 244 K/MM3 (134-434); RBC 4.19 M/mm3 (4.00-5.60); RDW 12.9 % (11.9-15.9); WHITE BLOOD COUNT 6.9 K/mm3 (4.0-10.0)
[2019-11-01 17:55] LABS: INR 0.97 (0.83-1.09); PROTHROMBIN TIME (PATIENT) 11.5 SEC (9.7-13.0)
[2019-11-01 18:14] LABS: ALBUMIN 3.7 g/dl (3.4-5.0); BILIRUBIN,TOTAL 0.4 mg/dL (0.2-1); BLOOD UREA NITROGEN 15.9 mg/dL (7-18); CALCIUM 10.1 mg/dL (8.5-10.1); CREATININE 1.5 mg/dL (0.55-1.3); POTASSIUM 4.3 mmol/L (3.5-5.1); TOT PROT 6.9 g/dl (6.4-8.2)
[2019-11-01] MEDS: TAMSULOSIN HCL 0.4 MG CAP PO SCH (22:52)
[2019-11-01] MEDS: SENNOSIDES/DOCUSATE COMBO (SENNA PLUS) TABLET (UD) PO PRN (22:53)
[2019-11-01] MEDS: ATORVASTATIN CA 10 MG TABLET (FP) PO SCH (22:53)
[2019-11-01] MEDS: morphine SULFATE 4 MG/ML VIAL IVPUSH PRN (22:53)
[2019-11-01 23:08] LABS: EPI CELLS 11 /uL (0-25.1); HYALINE CASTS 1 /uL (0-3.1); PH,URINE 5.5 (5.0-8.0); URINE APPEARANCE CLEAR; URINE BACTERIA 29 /uL (0-1359); URINE BILIRUBIN NEGATIVE (NEGATIVE); URINE COLOR YELLOW; URINE GLUCOSE (UA) TRACE (NEGATIVE); URINE KETONE NEGATIVE (NEGATIVE); URINE LEUK ESTERASE NEGATIVE (NEGATIVE); URINE NITRITE NEGATIVE (NEGATIVE); URINE PROTEIN NEGATIVE (NEGATIVE); URINE RBC 7 /uL (0-23.9); URINE UROBILINOGEN 0.2 mg/dL (0.2-1.0); URINE WBC 43 /uL (0-25.8)
[2019-11-02] MEDS: morphine SULFATE 4 MG/ML VIAL IVPUSH PRN ×3 (05:51→20:13)
[2019-11-02] MEDS: INSULIN SLIDING SCALE (NOVOLOG) 1 VIAL SQ SCH ×2 (06:24→16:57)
--- NOTE | 2019-11-02 09:05 | CONSULT ---
Consult - text type - Consultation Consultation Note: CC: metastatic malignancy without proven primary hpi: Patient is a 64 year old male with history of severe pelvic pain. The patient denies gross hematuria, nausea, and vomiting, or fever. The patient is also having difficulty voiding for which I placed a catheter. The patient has a psa less than one. There is no evidence at this time that the primary is prostatic. PE vss; afeb abd- mild suprapubic tenderness; no CVAT impression metastatic neoplastic process plan will arrange with Dr. Hargrove to biopsy suspected lymph nodes and possible prostate discussed x [address] Hargrove and family
[2019-11-02] MEDS ORDERED: morphine SULFATE 4 MG/ML VIAL IVPB ONE (09:30)
[2019-11-02] MEDS: LOSARTAN POTASSIUM 50 MG TABLET PO SCH (10:36)
--- NOTE | 2019-11-02 12:35 | HP ---
Admitting History and Physical - Primary Care Physician PCP: Ebony Vincent - Admission Chief Complaint: intractable rectal pain History of Present Illness: 11/01/19 18:41 The patient is a 64-year-old male with past medical history of diabetes, hypertension, hyperlipidemia, kidney stones, external hemorrhoid, presents to the ER again today for increasing rectal pain. He states that after his visit he went to Dr. Posada for follow-up on his visit from 10/29/2019. His CAT scan results had now resulted and was sent back to the ER for "pain control ". A/P: Metastatic cancer CAT scan report now reviewed. Resulted after patient had been discharged from the ER earlier today. CAT scan shows multiple bilateral pulmonary masses suspicious for metastatic disease Posterior mediastinal mass suspicious for subcarinal lymphadenopathy. Diffuse fatty infiltration of the liver with suspected hepatic metastasis. Left-sided pelvic mass that may be originating or involving the prostate gland. The mass is most likely represents left pelvic lymphadenopathy. Clinical correlation and continued follow-up recommended. Possibility of a prostatic lesion cannot be excluded Given setting of new onset metastatic cancer with hemorrhoid/rectal mass felt earlier today, will admit for cancer work-up with unknown origin. Morphine for pain control pt examined having severe pain - rectal pain constipated on jackson History Source: Patient, Family Member Limitations to Obtaining History: Language Barrier - Past Medical History Cardiovascular: Yes: HTN Renal/: Yes: BPH Endocrine: Yes: Diabetes Mellitus - Smoking History Smoking history: Former smoker Have you smoked in the past 12 months: Yes Aproximately how many cigarettes per day: 10 Home Medications - Allergies Allergies/Adverse Reactions: Allergies Allergy/AdvReac Type Severity Reaction Status Date / Time amoxicillin Allergy Verified 11/01/19 12:18 - Home Medications Home Medications: Ambulatory Orders Aspirin [ASA -] 81 mg PO DAILY 11/04/13 Glyburide/Metformin HCl [Glyburide-Metformin 5-500 mg] 1 each PO TID 11/04/13 Losartan Potassium 50 mg PO DAILY 11/04/13 Simvastatin [Zocor -] 20 mg PO HS 11/04/13 Tamsulosin HCl [Flomax -] 0.4 mg PO HS #30 capsule 11/04/13 Hydrocortisone 2.5% Topical Cr [Anusol-Hc -] 1 applic RC BID #1 tube 10/28/19 Lidocaine [Hemorrhoidal Relief] 30 gm TP Q4HWA PRN #1 cream..g. 10/28/19 Sennosides/Docusate Sodium [Senokot-S Tablet] 2 each PO HS PRN 7 Days #14 tablet 10/28/19 Docusate Sodium [Colace -] 100 mg PO TID #90 capsule 11/09/19 Morphine *Immediate Release* [Msir -] 15 mg PO Q6H #30 tab MDD 4 11/09/19 Morphine *Sr* [Ms Contin -] 15 mg PO BID #60 tablet.sa MDD 2 11/09/19 Polyethylene Glycol 3350 [Miralax 119 gm Btl -] 17 gm PO DAILY PRN #1 bottle 11/09/19 Review of Systems - Review of Systems Constitutional: denies: Chills, Fever Gastrointestinal: reports: Constipation (rectal pain). denies: Abdominal Pain Physical Examination Vital Signs: Vital Signs Temperature 98.4 F 11/02/19 06:00 Pulse Rate 75 11/02/19 06:00 Respiratory Rate 18 11/02/19 09:00 Blood Pressure 123/76 11/02/19 06:00 O2 Sat by Pulse Oximetry (%) 96 11/02/19 09:00 Constitutional: Yes: Moderate Distress Cardiovascular: Yes: Regular Rate and Rhythm Respiratory: Yes: CTA Bilaterally Gastrointestinal: Yes: Normal Bowel Sounds, Soft. No: Tenderness Edema: No Neurological: Yes: Alert, Oriented Labs: CBC, BMP 11/01/19 17:10 11/01/19 17:10 Imaging - Results Chest X-ray: Image Reviewed Cat Scan: Report Reviewed EKG: Image Reviewed Problem List - Problems (1) Metastasis to liver of unknown origin Code(s): C78.7 - SECONDARY MALIG NEOPLASM OF LIVER AND INTRAHEPATIC BILE DUCT; C80.1 - MALIGNANT (PRIMARY) NEOPLASM, UNSPECIFIED (2) Metastatic cancer Code(s): C79.9 - SECONDARY MALIGNANT NEOPLASM OF UNSPECIFIED SITE Qualifiers: Area of secondary neoplastic involvement: unspecified site Qualified Code(s): C79.9 - Secondary malignant neoplasm of unspecified site (3) Rectal pain Code(s): K62.89 - OTHER SPECIFIED DISEASES OF ANUS AND RECTUM Assessment/Plan PLAN will start Morphine iv as needed with PO Oxycodone for breakthrough pain Jackson as placed in office today for urinary retention oncology eval check tumor markers for pelvic lymph node biopsy to check primary stool softeners continue jackson DVT prophylaxis
--- NOTE | 2019-11-02 13:29 | EKG ---
Test Reason : Blood Pressure : / mmHG Vent. Rate : 069 BPM Atrial Rate : 069 BPM P-R Int : 124 ms QRS Dur : 090 ms QT Int : 344 ms P-R-T Axes : 004 001 014 degrees QTc Int : 368 ms NORMAL SINUS RHYTHM NORMAL ECG Confirmed by MD PORTILLO GREGORY ([id number]) on 11/02/2019 1:29:22 PM Referred By: Confirmed By:SARITA PORTILLO MD
--- NOTE | 2019-11-02 15:57 | CONSULT ---
Consultation: REQUESTING PROVIDER: Dr. Vincent CONSULT REQUEST: We have been asked to medically evaluate this patient for metastatic disease. HISTORY OF PRESENT ILLNESS: Patient is a 64 year old male with past medical history of HTN, HLD, DM, hemorrhoids (s/p resection years ago), presented to the ED due to severe pelvic pain that started 2 months ago. This was accompanied by blood streaks on stool. Patient applied steroid cream to the external hemorrhoids which provided temporary relief. Patient was seen at the ED 5 days ago where he was given topical cream and was advised to follow up with GI in the clinic. He had abdominal CT done which revealed multiple bilateral pulmonary masses, post mediastinal mass, and hepatic lesions, all suspicious for metastases, and a Left sided pelvic mass. Yesterday, patient came back due to persistence of the rectal pain, and with the recent CT findings, was advised admission. Patient reports constipation and difficulty urinating recently, but denies any fevers, chills, night sweats, weight loss, nausea, vomiting, chest pain, SOB, abdominal pain. Patient was evaluated by urology and catheter was placed. Patient has not had any colonoscopy in the past. PMHx: HTN, HLD, DM, hemorrhoids (s/p resection years ago) PSHx: right staghorn calculus surgery Allergies: Amoxicilin FHx: +stomach cancer - father, CAD s/p CABG - mother SHx: 40 pack year smoking history, on e-cigarette that past 2 years, occasional etoh use, denies illicit drug use REVIEW OF SYSTEMS: CONSTITUTIONAL: Absent: fever, chills, diaphoresis, generalized weakness, malaise, loss of appetite, weight change HEENT: Absent: rhinorrhea, nasal congestion, throat pain, throat swelling, difficulty swallowing, mouth swelling, ear pain, eye pain, visual changes CARDIOVASCULAR: Absent: chest pain, syncope, palpitations, irregular heart rate, lightheadedness, peripheral edema RESPIRATORY: Absent: cough, shortness of breath, dyspnea with exertion, orthopnea, wheezing, stridor, hemoptysis GASTROINTESTINAL: rectal pain Absent: abdominal pain, abdominal distension, nausea, vomiting, diarrhea, constipation, melena, hematochezia GENITOURINARY: difficulty voiding, genital pain Absent: dysuria, frequency, urgency, hesitancy, hematuria, flank pain MUSCULOSKELETAL: Absent: myalgia, arthralgia, joint swelling, back pain, neck pain SKIN: Absent: rash, itching, pallor HEMATOLOGIC/IMMUNOLOGIC: Absent: easy bleeding, easy bruising, lymphadenopathy, frequent infections ENDOCRINE: Absent: unexplained weight gain, unexplained weight loss, heat intolerance, cold intolerance NEUROLOGIC: Absent: headache, focal weakness or paresthesias, dizziness, unsteady gait, seizure, mental status changes, bladder or bowel incontinence PSYCHIATRIC: Absent: anxiety, depression, suicidal or homicidal ideation, hallucinations. PHYSICAL EXAMINATION Vital Signs - 24 hr 11/01/19 11/01/19 11/02/19 15:55 20:49 00:00 Temperature 98.1 F 97.9 F Pulse Rate 76 65 Pulse Rate [ 62 Apical] Respiratory 18 18 20 Rate Blood Pressure 107/67 122/70 Blood Pressure 117/57 L [Left Arm] O2 Sat by Pulse 99 97 Oximetry (%) 11/02/19 11/02/19 11/02/19 00:14 06:00 09:00 Temperature 98.4 F Pulse Rate 75 Pulse Rate [ Apical] Respiratory 20 20 18 Rate Blood Pressure 123/76 Blood Pressure [Left Arm] O2 Sat by Pulse 98 94 L 96 Oximetry (%) 11/02/19 13:43 Temperature 98.6 F Pulse Rate 96 H Pulse Rate [ Apical] Respiratory 20 Rate Blood Pressure 150/90 Blood Pressure [Left Arm] O2 Sat by Pulse Oximetry (%) GENERAL: Awake, alert, and fully oriented, in no acute distress. HEAD: Normal with no signs of trauma. EYES: PERRLA, EOMI, sclera anicteric, conjunctiva clear. EARS, NOSE, THROAT: Moist mucous membranes. NECK: Normal range of motion, supple LUNGS: Breath sounds equal, clear to auscultation bilaterally. HEART: Regular rate and rhythm, normal S1 and S2 without murmur, rub or gallop. ABDOMEN: Soft, mild suprapubic tenderness, not distended, normoactive bowel sounds LOWER EXTREMITIES: 2+ pulses, warm, well-perfused. No peripheral edema. NEUROLOGICAL: Cranial nerves II-XII intact. Normal speech. Normal gait. PSYCHIATRIC: Cooperative. Good eye contact. Appropriate mood and affect. SKIN: Warm, dry, normal turgor Laboratory Results - last 24 hr 11/01/19 11/01/19 11/01/19 17:10 17:10 17:10 WBC 6.9 RBC 4.19 Hgb 12.8 Hct 37.2 MCV 88.7 MCH 30.4 MCHC 34.3 RDW 12.9 Plt Count 244 MPV 9.1 Absolute Neuts (auto) 4.4 Neutrophils % 64.5 Lymphocytes % 25.3 Monocytes % 9.1 Eosinophils % 0.8 Basophils % 0.3 Nucleated RBC % 0 PT with INR 11.50 INR 0.97 Sodium 142 Potassium 4.3 Chloride 110 H Carbon Dioxide 25 Anion Gap 7 L BUN 15.9 Creatinine 1.5 H Est GFR (CKD-EPI)AfAm 57.01 Est GFR (CKD-EPI)NonAf 49.19 POC Glucometer Random Glucose 130 H Calcium 10.1 Total Bilirubin 0.4 AST 31 ALT 18 Alkaline Phosphatase 53 Total Protein 6.9 Albumin 3.7 Urine Color Urine Appearance Urine pH Ur Specific [place] Urine Protein Urine Glucose (UA) Urine Ketones Urine Blood Urine Nitrite Urine Bilirubin Urine Urobilinogen Ur Leukocyte Esterase Urine WBC (Auto) Urine RBC (Auto) Urine Casts (Auto) U Epithel Cells (Auto) Urine Bacteria (Auto) COVID-19 ([facility]) 11/01/19 11/01/19 11/02/19 17:10 20:20 05:42 WBC RBC Hgb Hct MCV MCH MCHC RDW Plt Count MPV Absolute Neuts (auto) Neutrophils % Lymphocytes % Monocytes % Eosinophils % Basophils % Nucleated RBC % PT with INR INR Sodium Potassium Chloride Carbon Dioxide Anion Gap BUN Creatinine Est GFR (CKD-EPI)AfAm Est GFR (CKD-EPI)NonAf POC Glucometer 121 Random Glucose Calcium Total Bilirubin AST ALT Alkaline Phosphatase Total Protein Albumin Urine Color Yellow Urine Appearance Clear Urine pH 5.5 Ur Specific [place] 1.008 L Urine Protein Negative Urine Glucose (UA) Trace Urine Ketones Negative Urine Blood 1+ H Urine Nitrite Negative Urine Bilirubin Negative Urine Urobilinogen 0.2 Ur Leukocyte Esterase Negative Urine WBC (Auto) 43 Urine RBC (Auto) 7 Urine Casts (Auto) 1 U Epithel Cells (Auto) 11 Urine Bacteria (Auto) 29 COVID-19 ([place]) Not detected Active Medications Generic Name Dose Route Start Last Admin Trade Name Freq PRN Reason Stop Dose Admin Atorvastatin Calcium 10 mg 11/01/19 22:00 11/01/19 22:53 Lipitor - PO Not Given HS [facility] Heparin Sodium (Porcine) 5,000 unit 09/09/20 22:00 Heparin - SQ BID DANY Insulin Aspart 1 vial 11/02/19 07:00 11/02/19 06:24 Novolog Vial Sliding Scale - SQ Not Given BIDAC [facility] Protocol Losartan Potassium 50 mg 11/02/19 10:00 11/02/19 10:36 Cozaar - PO 50 mg DAILY DANY Administration Morphine Sulfate 4 mg 11/01/19 17:53 11/02/19 13:06 Morphine Sulfate IVPUSH 4 mg Q6H PRN Administration PAIN LEVEL 7-10 Oxycodone HCl 10 mg 11/02/19 13:06 Roxicodone - PO Q4H PRN PAIN LEVEL 4 - 6 Polyethylene Glycol 17 gm 11/02/19 13:06 Miralax (For Daily Use) - PO DAILY PRN CONSTIPATION Senna/Docusate Sodium 2 tablet 11/01/19 16:31 11/01/19 22:53 Pericolace - PO 2 tablet HS PRN Administration CONSTIPATION Tamsulosin HCl 0.4 mg 11/01/19 22:00 11/01/19 22:52 Flomax - PO 0.4 mg HS DANY Administration ASSESSMENT/PLAN: Patient is a 64 year old male with past medical history of HTN, HLD, DM, hemorrhoids (s/p resection years ago), presented to the ED due to severe pelvic pain that started [address] AP revealed multiple lesions on chest and abdomen suspicious for metastases. We have been asked to medically evaluate this patient for metastatic disease. #Metastatic disease -unclear primary source at this time -CT A/P : multiple bilateral pulmonary masses, posterior mediastinal mass, and hepatic lesions, suspicious for metastases. Left sided pelvic mass that may be originating or involving the prostate gland, most likely represent left pelvic lymphadenopathy. -Plan for IR biopsy of suspected LN and possible prostate -tumor markers ordered including CEA, PSA, LDH, Ca 19-9, AFP -Bone scan to r/o mets -GI (Dr. Blanco) consulted. Dispo: We will continue to follow the patient. Thank you for this consultative opportunity. Visit type - Emergency Visit Emergency Visit: Yes ED Registration Date: 11/01/19 Care time: The patient presented to the Emergency Department on the above date and was hospitalized for further evaluation of their emergent condition. - New Patient This patient is new to me today: Yes Date on this admission: 11/02/19 - Critical Care Critical Care patient: No ATTENDING PHYSICIAN STATEMENT I saw and evaluated the patient. I reviewed the resident's note and discussed the case with the resident. I agree with the resident's findings and plan as documented. SUBJECTIVE: OBJECTIVE: ASSESSMENT AND PLAN:
[2019-11-02] MEDS: oxyCODONE HCL 5 MG TABLET PO PRN (16:48)
[2019-11-02] MEDS: POLYETHYLENE GLYCOL 3350 119 GM BTL PO PRN (16:53)
[2019-11-02] MEDS ORDERED: INSULIN (NOVOLOG) ASPART 100 UNITS/ML 10ML VIAL ONE (16:55)
[2019-11-02] MEDS: TAMSULOSIN HCL 0.4 MG CAP PO SCH (21:26)
[2019-11-02] MEDS: ATORVASTATIN CA 10 MG TABLET (FP) PO SCH (21:27)
[2019-11-02] MEDS: SENNOSIDES/DOCUSATE COMBO (SENNA PLUS) TABLET (UD) PO PRN (21:27)
[2019-11-02] MEDS: HEPARIN NA (PORCINE) 5,000 UNITS/ML 1ML VIAL SQ SCH (21:27)
[2019-11-03] MEDS: oxyCODONE HCL 5 MG TABLET PO PRN ×2 (05:12→14:43)
[2019-11-03] MEDS: INSULIN SLIDING SCALE (NOVOLOG) 1 VIAL SQ SCH ×2 (06:45→17:04)
--- NOTE | 2019-11-03 08:58 | PN ---
Teaching Attending Note Name of Resident: Elvi Subramanian ATTENDING PHYSICIAN STATEMENT I saw and evaluated the patient. I reviewed the resident's note and discussed the case with the resident. I agree with the resident's findings and plan as documented. ASSESSMENT AND PLAN: Patient is a 64 year old male with past medical history of HTN, HLD, DM, hemorrhoids (s/p resection years ago), presented to the ED due to severe pelvic pain that started [address] AP revealed multiple lesions on chest and abdomen suspicious for metastases. We have been asked to medically evaluate this patient for metastatic disease. #Metastatic disease -CT A/P : multiple bilateral pulmonary masses, posterior mediastinal mass, and hepatic lesions, suspicious for metastases. Left sided pelvic mass that may be originating or involving the prostate gland, most likely represent left pelvic lymphadenopathy. -Plan for IR biopsy of pelvic mass -tumor markers ordered including CEA, PSA, LDH, Ca 19-9, AFP -Bone scan to r/o mets -GI (Dr. Blanco) consulted. Discussed with Discussed with IR team and house staff
[2019-11-03] MEDS: HEPARIN NA (PORCINE) 5,000 UNITS/ML 1ML VIAL SQ SCH (09:22)
[2019-11-03] MEDS: LOSARTAN POTASSIUM 50 MG TABLET PO SCH (09:22)
[2019-11-03] MEDS: morphine SULFATE 4 MG/ML VIAL IVPUSH PRN ×2 (10:05→19:51)
[2019-11-03] MEDS ORDERED: DOCUSATE SODIUM 100 MG CAPSULE (FP) PO STA (12:38)
--- NOTE | 2019-11-03 12:39 | PN ---
Progress Note (short form) - Note Progress Note: has pain in pelvic area and when he has a bm he is constipated sees blood when he wipes Vital Signs - 24 hr 11/02/19 11/02/19 11/02/19 19:03 21:00 22:00 Temperature 97.7 F 98.1 F Pulse Rate 94 H 77 Respiratory 18 18 18 Rate Blood Pressure 155/92 141/70 O2 Sat by Pulse 93 L 97 97 Oximetry (%) 11/03/19 11/03/19 11/03/19 06:00 08:30 10:00 Temperature 97.7 F 99.1 F 99.0 F Pulse Rate 75 106 H 100 H Respiratory 18 18 18 Rate Blood Pressure 138/71 146/74 140/70 O2 Sat by Pulse 94 L 96 96 Oximetry (%) 11/03/19 13:49 Temperature 98.8 F Pulse Rate 103 H Respiratory 18 Rate Blood Pressure 143/77 O2 Sat by Pulse Oximetry (%) Current Medications Generic Name Dose Route Start Last Admin Trade Name Freq PRN Reason Stop Dose Admin Atorvastatin Calcium 10 mg 11/01/19 22:00 11/02/19 21:27 Lipitor - PO 10 mg HS DANY Administration Docusate Sodium 100 mg 11/03/19 14:00 11/03/19 14:17 Colace - PO Not Given TID DANY Heparin Sodium (Porcine) 5,000 unit 11/02/19 22:00 11/03/19 09:22 Heparin - SQ 5,000 unit BID DANY Administration Sodium Chloride 1,000 mls @ 83 mls/hr 11/03/19 13:15 11/03/19 14:18 Normal Saline - IV 11/04/19 13:14 83 mls/hr ASDIR DANY Administration Insulin Aspart 1 vial 11/02/19 07:00 11/03/19 17:04 Novolog Vial Sliding Scale - SQ Not Given BIDAC DANY Protocol Losartan Potassium 50 mg 11/02/19 10:00 11/03/19 09:22 Cozaar - PO 50 mg DAILY DANY Administration Morphine Sulfate 4 mg 11/01/19 17:53 11/03/19 10:05 Morphine Sulfate IVPUSH 4 mg Q6H PRN Administration PAIN LEVEL 7-10 Oxycodone HCl 10 mg 11/02/19 13:06 11/03/19 14:43 Roxicodone - PO 10 mg Q4H PRN Administration PAIN LEVEL 4 - 6 Polyethylene Glycol 17 gm 11/02/19 13:06 11/02/19 16:53 Miralax (For Daily Use) - PO 17 grams DAILY PRN Administration CONSTIPATION Senna 2 tab 11/03/19 13:53 Senna - PO HS PRN CONSTIPATION Tamsulosin HCl 0.4 mg 11/01/19 22:00 11/02/19 21:26 Flomax - PO 0.4 mg HS DANY Administration Laboratory Results - last 24 hr 11/03/19 11/03/19 11/03/19 06:43 06:45 17:03 POC Glucometer 127 138 LD Total 306 H S1 S2 RRR Lungs clear Abd- soft, nT No edema PLAN pain control Oncology eval noted for biopsy tomorrow start on stool softeners DVT prophyalxsi hold heparin for now till he gets bx CT chest noted skeletal survey ordered Renal eval noted Problem List - Problems (1) COPD (chronic obstructive pulmonary disease) Code(s): J44.9 - CHRONIC OBSTRUCTIVE PULMONARY DISEASE, UNSPECIFIED (2) Metastatic cancer Code(s): C79.9 - SECONDARY MALIGNANT NEOPLASM OF UNSPECIFIED SITE Qualifiers: Area of secondary neoplastic involvement: unspecified site Qualified Code(s): C79.9 - Secondary malignant neoplasm of unspecified site (3) Rectal pain Code(s): K62.89 - OTHER SPECIFIED DISEASES OF ANUS AND RECTUM (4) Bleeding internal hemorrhoids Code(s): K64.8 - OTHER HEMORRHOIDS
[2019-11-03] MEDS ORDERED: SODIUM CHLORIDE 1,000 ML IV SCH (13:15)
[2019-11-03] MEDS ORDERED: DOCUSATE SODIUM 100 MG CAPSULE (FP) PO SCH (14:00)
[2019-11-03] MEDS: DOCUSATE SODIUM 100 MG CAPSULE (FP) PO SCH ×2 (14:17→21:29)
--- NOTE | 2019-11-03 14:43 | CON.NEP ---
Consult Consult Specialty:: Nephrology Referred by:: Dr. Torres Reason for Consultation:: Acute kidney injury vs. CKD - History of Present Illness Chief Complaint: Pain History of Present Illness: This is a 64 year old male with history of hypertension, hyperlipidemia and DM type 2 who presented with worsening pelvic pain over 2 months and found to have multiple lesions in lung/abdomen and pelvis consistent with metastatic disease and elevated Cr levels. Seen and examined at the bedside. His pain is controlled with pain medications. Denies any flank pain. No gross hematuira. + Frequent NSAID use at home. No chest pain or shortness of breath. No leg swelling. - History Source History Provided By: Patient Limitations to Obtaining History: No Limitations - Smoking History Smoking history: Former smoker Have you smoked in the past 12 months: Yes Aproximately how many cigarettes per day: 10 Home Medications - Allergies Allergies/Adverse Reactions: Allergies Allergy/AdvReac Type Severity Reaction Status Date / Time amoxicillin Allergy Verified 11/01/19 12:18 - Home Medications Home Medications: Ambulatory Orders Aspirin [ASA -] 81 mg PO DAILY 11/04/13 Glyburide/Metformin HCl [Glyburide-Metformin 5-500 mg] 1 each PO TID 11/04/13 Losartan Potassium 50 mg PO DAILY 11/04/13 Simvastatin [Zocor -] 20 mg PO HS 11/04/13 Tamsulosin HCl [Flomax] 0.4 mg PO HS #30 capsule 11/04/13 Hydrocortisone 2.5% Topical Cr [Anusol 2.5% Hc Cream -] 1 applic RC BID #1 tube 10/28/19 Lidocaine [Hemorrhoidal Relief] 30 gm TP Q4HWA PRN #1 cream..g. 10/28/19 Sennosides/Docusate Sodium [Senokot-S Tablet] 2 each PO HS PRN 7 Days #14 tablet 10/28/19 Family Medical History Family History: Unremarkable Review of Systems - Review of Systems Constitutional: reports: No Symptoms Eyes: reports: No Symptoms HENT: reports: No Symptoms Neck: reports: No Symptoms Cardiovascular: reports: No Symptoms Respiratory: reports: No Symptoms Gastrointestinal: reports: Abdominal Pain Genitourinary: reports: Pain. denies: Burning, Flank Pain, Testicular Pain Musculoskeletal: reports: No Symptoms Neurological: reports: No Symptoms Endocrine: reports: No Symptoms Nephrology Consult - Height Height: 5 ft 7 in - Weight Weight: 81.732 kg - BMI Body Mass Index (BMI): 28.2 - Lab Results CBC,BMP: CBC, BMP 11/01/19 17:10 11/01/19 17:10 Anion Gap: Anion Gap Anion Gap 7 MMOL/L (8-16) L 11/01/19 17:10 - Imaging Chest X-ray: Report Reviewed Cat Scan: Report Reviewed - Physical Examination Vital Signs: Vital Signs Temperature 98.8 F 11/03/19 13:49 Pulse Rate 103 H 11/03/19 13:49 Respiratory Rate 18 11/03/19 13:49 Blood Pressure 143/77 11/03/19 13:49 O2 Sat by Pulse Oximetry (%) 96 11/03/19 10:00 Constitutional: Yes: No Distress, Calm Eyes: Yes: Conjunctiva Clear HENT: Yes: Atraumatic, Normocephalic Neck: Yes: Supple Respiratory: Yes: Regular, CTA Bilaterally. No: Rales, Rhonchi, SOB Gastrointestinal: Yes: Soft. No: Tenderness Renal/: Yes: García Present. No: Bladder Distention, CVA Tenderness - Left, CVA Tenderness - Right Extremities: No: Cyanosis Edema: No Neurological: Yes: Alert, Oriented Assessment/Plan 64 year old male with history of hypertension, hyperlipidemia and DM type 2 who presented with worsening pelvic pain over 2 months and found to have multiple lesions in lung/abdomen and pelvis consistent with metastatic disease and elevated Cr levels. 1. Acute kidney injury in setting in NSAID use vs. CKD (prior reported Cr values ~1.4) 2. Suspected metastatic disease with unclear origin 3. Hypertension 4. DM Imaging of the abdomen did not show evidence of hydronephrosis to suggest a obstructive process. Check FeNa and UPCR. Give trial of isotonic saline x 24 hours for biopsy of pelvic mass per urology Can continue Losartan for now as renal function does not appear to be rapidly w orsening Avoid further NSAIDs if possible Trend renal function and electrolytes daily Thank you Mickey Zarate DO
[2019-11-03] MEDS: ATORVASTATIN CA 10 MG TABLET (FP) PO SCH (21:29)
[2019-11-03] MEDS: SENNOSIDES 8.6MG TABLET (FP) PO PRN (21:30)
[2019-11-03] MEDS: TAMSULOSIN HCL 0.4 MG CAP PO SCH (21:30)
[2019-11-03 22:11] VITALS: BMI 28.1
[2019-11-04] MEDS: morphine SULFATE 4 MG/ML VIAL IVPUSH PRN ×4 (00:52→22:30)
[2019-11-04 04:07] LABS: CARCINOEMBRYONIC ANTIGEN 3.1 ng/mL (0.0-4.7)
[2019-11-04] MEDS: INSULIN SLIDING SCALE (NOVOLOG) 1 VIAL SQ SCH ×2 (06:26→17:20)
[2019-11-04] MEDS: DOCUSATE SODIUM 100 MG CAPSULE (FP) PO SCH ×3 (06:26→21:44)
[2019-11-04 07:52] LABS: BASO % 0.3 % (0-2.0); EOS % 1.1 % (0-4.5); HEMATOCRIT 36.5 % (35.4-49); HEMOGLOBIN 12.3 GM/dL (11.7-16.9); LYMPH % 23.8 % (8-40); MCH 29.7 pg (25.7-33.7); MCHC 33.9 g/dl (32.0-35.9); MEAN CELL VOLUME 87.6 fl (80-96); MEAN PLT VOLUME 8.8 fl (7.5-11.1); MONO % 10.4 % (3.8-10.2); NEUT % 64.4 % (42.8-82.8); PLATELET COUNT 219 K/MM3 (134-434); RBC 4.16 M/mm3 (4.00-5.60); RDW 12.8 % (11.9-15.9); WHITE BLOOD COUNT 7.2 K/mm3 (4.0-10.0)
[2019-11-04] MEDS: LOSARTAN POTASSIUM 50 MG TABLET PO SCH (09:21)
[2019-11-04] MEDS: oxyCODONE HCL 5 MG TABLET PO PRN ×2 (09:21→18:00)
[2019-11-04 13:12] LABS: BLOOD UREA NITROGEN 18.1 mg/dL (7-18); CALCIUM 9.2 mg/dL (8.5-10.1); CREATININE 1.2 mg/dL (0.55-1.3); POTASSIUM 3.8 mmol/L (3.5-5.1)
--- NOTE | 2019-11-04 13:55 | PN ---
Progress Note, Physician History of Present Illness: Seen and examined at the bedside offers no acute complaints making urine on IVF - Current Medication List Current Medications: Active Medications Atorvastatin Calcium (Lipitor -) 10 mg PO HS [facility] Last Admin: 11/03/19 21:29 Dose: 10 mg Documented by: Docusate Sodium (Colace -) 100 mg PO TID [facility] Last Admin: 11/04/19 06:26 Dose: Not Given Documented by: Insulin Aspart (Novolog Vial Sliding Scale -) 1 vial SQ BIDAC [facility]; Protocol Last Admin: 11/04/19 06:26 Dose: Not Given Documented by: Losartan Potassium (Cozaar -) 50 mg PO DAILY [facility] Last Admin: 11/04/19 09:21 Dose: 50 mg Documented by: Morphine Sulfate (Morphine Sulfate) 4 mg IVPUSH Q6H PRN PRN Reason: PAIN LEVEL 7-10 Last Admin: 11/04/19 06:26 Dose: 4 mg Documented by: Oxycodone HCl (Roxicodone -) 10 mg PO Q4H PRN PRN Reason: PAIN LEVEL 4 - 6 Last Admin: 11/04/19 09:21 Dose: 10 mg Documented by: Polyethylene Glycol (Miralax (For Daily Use) -) 17 gm PO DAILY PRN PRN Reason: CONSTIPATION Last Admin: 11/02/19 16:53 Dose: 17 grams Documented by: Senna (Senna -) 2 tab PO HS PRN PRN Reason: CONSTIPATION Last Admin: 11/03/19 21:30 Dose: 2 tab Documented by: Tamsulosin HCl (Flomax -) 0.4 mg PO HS [facility] Last Admin: 11/03/19 21:30 Dose: 0.4 mg Documented by: - Objective Vital Signs: Vital Signs Temperature 98.9 F 11/04/19 10:00 Pulse Rate 102 H 11/04/19 13:51 Respiratory Rate 15 11/04/19 13:51 Blood Pressure 186/97 H 11/04/19 13:51 O2 Sat by Pulse Oximetry (%) 97 11/04/19 13:51 Constitutional: Yes: No Distress Cardiovascular: Yes: Regular Rate and Rhythm Respiratory: Yes: Regular Extremities: No: Cyanosis Edema: No Labs: CBC, BMP 11/04/19 06:20 11/04/19 06:20 INR, PTT INR 0.97 (0.83-1.09) 11/01/19 17:10 Assessment/Plan 64 year old male with history of hypertension, hyperlipidemia and DM type 2 who presented with worsening pelvic pain over 2 months and found to have multiple lesions in lung/abdomen and pelvis consistent with metastatic disease and elevated Cr levels. 1. Acute kidney injury in setting in NSAID use vs. CKD (prior reported Cr values ~1.4) 2. Suspected metastatic disease with unclear origin 3. Hypertension 4. DM Renal function improved s/p IVF Imaging of the abdomen did not show evidence of hydronephrosis to suggest a obstructive process. Oral intake as tolerated for biopsy of pelvic mass per urology Can continue Losartan for now as renal function does not appear to be rapidly worsening Avoid further NSAIDs if possible Trend renal function and electrolytes daily Will follow up as needed Thank you Mickey Zarate DO
--- NOTE | 2019-11-04 13:58 | PN ---
Progress Note, Physician History of Present Illness: pt seen/ examined chart reviewed all f/u noted - Current Medication List Current Medications: Active Medications Atorvastatin Calcium (Lipitor -) 10 mg PO HS [facility] Last Admin: 11/03/19 21:29 Dose: 10 mg Documented by: Docusate Sodium (Colace -) 100 mg PO TID [facility] Last Admin: 11/04/19 06:26 Dose: Not Given Documented by: Insulin Aspart (Novolog Vial Sliding Scale -) 1 vial SQ BIDAC [facility]; Protocol Last Admin: 11/04/19 06:26 Dose: Not Given Documented by: Losartan Potassium (Cozaar -) 50 mg PO DAILY [facility] Last Admin: 11/04/19 09:21 Dose: 50 mg Documented by: Morphine Sulfate (Morphine Sulfate) 4 mg IVPUSH Q6H PRN PRN Reason: PAIN LEVEL 7-10 Last Admin: 11/04/19 06:26 Dose: 4 mg Documented by: Oxycodone HCl (Roxicodone -) 10 mg PO Q4H PRN PRN Reason: PAIN LEVEL 4 - 6 Last Admin: 11/04/19 09:21 Dose: 10 mg Documented by: Polyethylene Glycol (Miralax (For Daily Use) -) 17 gm PO DAILY PRN PRN Reason: CONSTIPATION Last Admin: 11/02/19 16:53 Dose: 17 grams Documented by: Potassium Phos/Sodium Phos (Phos-Nak Packet -) 1 packet PO TID [facility] Stop: 11/05/19 06:01 Senna (Senna -) 2 tab PO HS PRN PRN Reason: CONSTIPATION Last Admin: 11/03/19 21:30 Dose: 2 tab Documented by: Tamsulosin HCl (Flomax -) 0.4 mg PO [facility] Last Admin: 11/03/19 21:30 Dose: 0.4 mg Documented by: - Objective Vital Signs: Vital Signs Temperature 98.9 F 11/04/19 10:00 Pulse Rate 102 H 11/04/19 13:51 Respiratory Rate 15 11/04/19 13:51 Blood Pressure 186/97 H 11/04/19 13:51 O2 Sat by Pulse Oximetry (%) 97 11/04/19 13:51 Neck: Yes: Supple Cardiovascular: Yes: Regular Rate and Rhythm Respiratory: Yes: CTA Bilaterally Gastrointestinal: Yes: Soft Edema: No Neurological: Yes: Alert Labs: CBC, BMP 11/04/19 06:20 11/04/19 06:20 INR, PTT INR 0.97 (0.83-1.09) 11/01/19 17:10 Problem List - Problems (1) Metastasis to liver of unknown origin Code(s): C78.7 - SECONDARY MALIG NEOPLASM OF LIVER AND INTRAHEPATIC BILE DUCT; C80.1 - MALIGNANT (PRIMARY) NEOPLASM, UNSPECIFIED Assessment/Plan Pain control Biopsy today will follow
--- NOTE | 2019-11-04 14:34 | PN.HO ---
Progress Note (short form) - Note Progress Note: Patient seen and examined at bedside. Reports feeling better except for some lower abd pain and back pain. Awaiting biopsy this afternoon of pelvic mass. General: in NAD, A&ox3 HEENT: NCAT PERRL, anicteric sclera CVS: S1,S2, no m/r/g Resp: cta abd: +BS, pain on palpation of suprapubic area Ext: no ll edema 64y M with HTN, HLD presents with severe pelvic pain; found to have pelvic mass and multiple lesions seen in chest/abd suspicious for malignancy/metastatic dz -pending biopsy today: will follow results for etiology of masses -tumor markers CEA, AFP, PSA wnl, Ca19-9 pending
[2019-11-04] MEDS: NAPH,MB-DB/K PH,MBDB POWDER PACKET PO SCH ×2 (14:38→21:45)
--- NOTE | 2019-11-04 16:23 | CON.GI ---
Consult Consult Specialty:: GI - History of Present Illness History of Present Illness: Patient is a 64 year old male with past medical history of HTN, HLD, DM, hemorrhoids (s/p resection years ago), presented to the ED due to severe pelvic pain that started 2 months ago. This was accompanied by blood streaks on stool. Patient applied steroid cream to the external hemorrhoids which provided temporary relief. Patient was seen at the ED 5 days ago where he was given topical cream and was advised to follow up with GI in the clinic. He had abdominal CT done which revealed multiple bilateral pulmonary masses, post mediastinal mass, and hepatic lesions, all suspicious for metastases, and a Left sided pelvic mass. Yesterday, patient came back due to persistence of the rectal pain, and with the recent CT findings, was advised admission. Patient reports constipation and difficulty urinating recently, but denies any fevers, chills, night sweats, weight loss, nausea, vomiting, chest pain, SOB, abdominal pain. Patient was evaluated by urology and catheter was placed. Patient has not had any colonoscopy in the past Deneias abdominal pain, only rectal pain, - Smoking History Smoking history: Former smoker Have you smoked in the past 12 months: Yes Aproximately how many cigarettes per day: 10 Home Medications - Allergies Allergies/Adverse Reactions: Allergies Allergy/AdvReac Type Severity Reaction Status Date / Time amoxicillin Allergy Verified 11/01/19 12:18 - Home Medications Home Medications: Ambulatory Orders Aspirin [ASA -] 81 mg PO DAILY 11/04/13 Glyburide/Metformin HCl [Glyburide-Metformin 5-500 mg] 1 each PO TID 11/04/13 Losartan Potassium 50 mg PO DAILY 11/04/13 Simvastatin [Zocor -] 20 mg PO HS 11/04/13 Tamsulosin HCl [Flomax] 0.4 mg PO HS #30 capsule 11/04/13 Hydrocortisone 2.5% Topical Cr [Anusol 2.5% Hc Cream -] 1 applic RC BID #1 tube 10/28/19 Lidocaine [Hemorrhoidal Relief] 30 gm TP Q4HWA PRN #1 cream..g. 10/28/19 Sennosides/Docusate Sodium [Senokot-S Tablet] 2 each PO HS PRN 7 Days #14 tablet 10/28/19 Family Medical History Family History: Unremarkable Physical Exam-GI Vital Signs: Vital Signs Temperature 98.9 F 11/04/19 10:00 Pulse Rate 102 H 11/04/19 13:51 Respiratory Rate 15 11/04/19 13:51 Blood Pressure 186/97 H 11/04/19 13:51 O2 Sat by Pulse Oximetry (%) 97 11/04/19 13:51 Constitutional: Yes: No Distress Eyes: No: Conjunctiva Clear HENT: No: Atraumatic Neck: No: Supple Cardiovascular: No: Regular Rate and Rhythm Respiratory: Yes: CTA Bilaterally ...Palpate: Yes: Soft. No: Firm/Rigid, Guarding, Hepatomegaly, Mass, Pulsatile Mass, Splenomegaly, Tenderness ...Rectal Exam: Yes: Other (refused) Labs: CBC, BMP 11/04/19 06:20 11/04/19 06:20 INR, PTT INR 0.97 (0.83-1.09) 11/01/19 17:10 Problem List - Problems (1) Metastasis to liver of unknown origin Assessment/Plan: await LN biopsy results Code(s): C78.7 - SECONDARY MALIG NEOPLASM OF LIVER AND INTRAHEPATIC BILE DUCT; C80.1 - MALIGNANT (PRIMARY) NEOPLASM, UNSPECIFIED (2) Rectal pain Assessment/Plan: secondary to pelvic mass R> await results of tumor markers LN biopsy Code(s): K62.89 - OTHER SPECIFIED DISEASES OF ANUS AND RECTUM
[2019-11-04] MEDS ORDERED: INSULIN (NOVOLOG) ASPART 100 UNITS/ML 10ML VIAL ONE (17:08)
[2019-11-04] MEDS: TAMSULOSIN HCL 0.4 MG CAP PO SCH (21:43)
[2019-11-04] MEDS: ATORVASTATIN CA 10 MG TABLET (FP) PO SCH (21:44)
[2019-11-04] MEDS: SENNOSIDES 8.6MG TABLET (FP) PO PRN (21:44)
[2019-11-05] MEDS: morphine SULFATE 4 MG/ML VIAL IVPUSH PRN ×3 (05:04→21:49)
[2019-11-05] MEDS: INSULIN SLIDING SCALE (NOVOLOG) 1 VIAL SQ SCH ×2 (06:35→17:02)
[2019-11-05] MEDS: NAPH,MB-DB/K PH,MBDB POWDER PACKET PO SCH (06:35)
[2019-11-05] MEDS: DOCUSATE SODIUM 100 MG CAPSULE (FP) PO SCH ×3 (06:35→21:44)
[2019-11-05] MEDS: oxyCODONE HCL 5 MG TABLET PO PRN ×2 (08:37→18:01)
[2019-11-05] MEDS: LOSARTAN POTASSIUM 50 MG TABLET PO SCH (09:19)
--- NOTE | 2019-11-05 09:52 | PN ---
Progress Note, Physician - Current Medication List Current Medications: Active Medications Atorvastatin Calcium (Lipitor -) 10 mg PO HS [facility] Last Admin: 11/04/19 21:44 Dose: 10 mg Documented by: Docusate Sodium (Colace -) 100 mg PO TID [facility] Last Admin: 11/05/19 06:35 Dose: 100 mg Documented by: Insulin Aspart (Novolog Vial Sliding Scale -) 1 vial SQ BIDAC [facility]; Protocol Last Admin: 11/05/19 06:35 Dose: Not Given Documented by: Losartan Potassium (Cozaar -) 50 mg PO DAILY [facility] Last Admin: 11/05/19 09:19 Dose: 50 mg Documented by: Morphine Sulfate (Morphine Sulfate) 4 mg IVPUSH Q6H PRN PRN Reason: PAIN LEVEL 7-10 Last Admin: 11/05/19 05:04 Dose: 4 mg Documented by: Oxycodone HCl (Roxicodone -) 10 mg PO Q4H PRN PRN Reason: PAIN LEVEL 4 - 6 Last Admin: 11/05/19 08:37 Dose: 10 mg Documented by: Polyethylene Glycol (Miralax (For Daily Use) -) 17 gm PO DAILY PRN PRN Reason: CONSTIPATION Last Admin: 11/02/19 16:53 Dose: 17 grams Documented by: Senna (Senna -) 2 tab PO HS PRN PRN Reason: CONSTIPATION Last Admin: 11/04/19 21:44 Dose: 2 tab Documented by: Tamsulosin HCl (Flomax -) 0.4 mg PO HS [facility] Last Admin: 11/04/19 21:43 Dose: 0.4 mg Documented by: - Objective Vital Signs: Vital Signs Temperature 98.4 F 11/05/19 08:30 Pulse Rate 83 11/05/19 08:30 Respiratory Rate 18 11/05/19 08:30 Blood Pressure 140/85 11/05/19 08:30 O2 Sat by Pulse Oximetry (%) 94 L 11/05/19 08:30 Labs: CBC, BMP 11/04/19 06:20 11/04/19 06:20 INR, PTT INR 0.97 (0.83-1.09) 11/01/19 17:10
[2019-11-05] MEDS ORDERED: SODIUM PHOSPHATE/NA BIPHOS 133 ML ENEMA RC PRN (10:08)
[2019-11-05] MEDS: BISACODYL 10 MG SUPP.RECT PR PRN (12:00)
--- NOTE | 2019-11-05 15:32 | PN ---
Progress Note (short form) - Note Progress Note: Patient seen in follow up. Ongoing pelvic/perineal pain. No events overnight. Meds reviewed. Current Medications Generic Name Dose Route Start Last Admin Trade Name Freq PRN Reason Stop Dose Admin Atorvastatin Calcium 10 mg 11/01/19 22:00 11/04/19 21:44 Lipitor - PO 10 mg HS DANY Administration Bisacodyl 10 mg 11/05/19 10:09 11/05/19 12:00 Dulcolax Suppository - [place] 10 mg PRN PRN Administration CONSTIPATION Docusate Sodium 100 mg 11/03/19 14:00 11/05/19 14:24 Colace - PO 100 mg TID DANY Administration Insulin Aspart 1 vial 11/02/19 07:00 11/05/19 06:35 Novolog Vial Sliding Scale - SQ Not Given BIDAC [facility] Protocol Losartan Potassium 50 mg 11/02/19 10:00 11/05/19 09:19 Cozaar - PO 50 mg DAILY [facility]ANY Administration Morphine Sulfate 4 mg 11/01/19 17:53 11/05/19 12:00 Morphine Sulfate IVPUSH 4 mg Q6H PRN Administration PAIN LEVEL 7-10 Oxycodone HCl 10 mg 11/02/19 13:06 11/05/19 08:37 Roxicodone - PO 10 mg Q4H PRN Administration PAIN LEVEL 4 - 6 Polyethylene Glycol 17 gm 11/02/19 13:06 11/02/19 16:53 Miralax (For Daily Use) - PO 17 grams DAILY PRN Administration CONSTIPATION Senna 2 tab 11/03/19 13:53 11/04/19 21:44 Senna - PO 2 tab HS PRN Administration CONSTIPATION Sodium Phosphate 133 ml 11/05/19 10:08 Fleet Adult Rectal Enema - RC DAILY PRN CONSTIPATION Tamsulosin HCl 0.4 mg 11/01/19 22:00 11/04/19 21:43 Flomax - PO 0.4 mg HS DANY Administration On exam: Last Vital Signs Temp Pulse Resp BP Pulse Ox 98.6 F 87 18 126/73 94 L 11/05/19 14:50 11/05/19 14:50 11/05/19 14:50 11/05/19 14:50 11/05/19 08:30 General:Supine in bed, no pallor Extremities: no pedal edema Chest: breathing comfortably Abdomen: Soft, non-distended Neuro: Alert, oriented, non-focal. Labs reviewed: CBC, BMP 11/04/19 06:20 11/04/19 06:20 Assessment. Likely metastatic disease, with extensive lung lesions, adenopathy, and and a pelvic mass. Pelvic lesion biopsied yesterday - awaiting pathology.
[2019-11-05] MEDS ORDERED: INSULIN (NOVOLOG) ASPART 100 UNITS/ML 10ML VIAL ONE (16:59)
--- NOTE | 2019-11-05 18:08 | PN ---
Progress Note, Physician History of Present Illness: pt seen/ examined s/p biopsy Pain ++ +Constipation all f/u noted - Current Medication List Current Medications: Active Medications Atorvastatin Calcium (Lipitor -) 10 mg PO HS [facility] Last Admin: 11/04/19 21:44 Dose: 10 mg Documented by: Bisacodyl (Dulcolax Suppository -) 10 mg [place] PRN PRN PRN Reason: CONSTIPATION Last Admin: 11/05/19 12:00 Dose: 10 mg Documented by: Docusate Sodium (Colace -) 100 mg PO TID [facility] Last Admin: 11/05/19 14:24 Dose: 100 mg Documented by: Insulin Aspart (Novolog Vial Sliding Scale -) 1 vial SQ BIDAC [facility]; Protocol Last Admin: 11/05/19 17:02 Dose: 4 units Documented by: Losartan Potassium (Cozaar -) 50 mg PO DAILY [facility] Last Admin: 11/05/19 09:19 Dose: 50 mg Documented by: Morphine Sulfate (Morphine Sulfate) 4 mg IVPUSH Q6H PRN PRN Reason: PAIN LEVEL 7-10 Last Admin: 11/05/19 12:00 Dose: 4 mg Documented by: Oxycodone HCl (Roxicodone -) 10 mg PO Q4H PRN PRN Reason: PAIN LEVEL 4 - 6 Last Admin: 11/05/19 08:37 Dose: 10 mg Documented by: Polyethylene Glycol (Miralax (For Daily Use) -) 17 gm PO DAILY PRN PRN Reason: CONSTIPATION Last Admin: 11/02/19 16:53 Dose: 17 grams Documented by: Senna (Senna -) 2 tab PO HS PRN PRN Reason: CONSTIPATION Last Admin: 11/04/19 21:44 Dose: 2 tab Documented by: Sodium Phosphate (Fleet Adult Rectal Enema -) 133 ml RC DAILY PRN PRN Reason: CONSTIPATION Tamsulosin HCl (Flomax -) 0.4 mg PO [facility] Last Admin: 11/04/19 21:43 Dose: 0.4 mg Documented by: - Objective Vital Signs: Vital Signs Temperature 98.6 F 11/05/19 14:50 Pulse Rate 87 11/05/19 14:50 Respiratory Rate 18 11/05/19 14:50 Blood Pressure 126/73 11/05/19 14:50 O2 Sat by Pulse Oximetry (%) 94 L 11/05/19 09:00 Constitutional: Yes: Anxious Neck: Yes: Supple Cardiovascular: Yes: Regular Rate and Rhythm Respiratory: Yes: CTA Bilaterally Gastrointestinal: Yes: Soft Edema: No Labs: CBC, BMP 11/04/19 06:20 11/04/19 06:20 INR, PTT INR 0.97 (0.83-1.09) 11/01/19 17:10 Problem List - Problems (1) Metastasis to liver of unknown origin Code(s): C78.7 - SECONDARY MALIG NEOPLASM OF LIVER AND INTRAHEPATIC BILE DUCT; C80.1 - MALIGNANT (PRIMARY) NEOPLASM, UNSPECIFIED Assessment/Plan Discussed in detail with pt/ who is at bedside Pain control Biopsy done Fleet enema laxatives Markers noted- ok will follow
[2019-11-05] MEDS: ATORVASTATIN CA 10 MG TABLET (FP) PO SCH (21:44)
[2019-11-05] MEDS: TAMSULOSIN HCL 0.4 MG CAP PO SCH (21:44)
[2019-11-05] MEDS: SENNOSIDES 8.6MG TABLET (FP) PO PRN (21:44)
[2019-11-06] MEDS: oxyCODONE HCL 5 MG TABLET PO PRN ×2 (00:50→08:59)
[2019-11-06] MEDS: morphine SULFATE 4 MG/ML VIAL IVPUSH PRN ×3 (05:32→20:14)
[2019-11-06] MEDS: DOCUSATE SODIUM 100 MG CAPSULE (FP) PO SCH ×3 (05:32→21:22)
[2019-11-06] MEDS: INSULIN SLIDING SCALE (NOVOLOG) 1 VIAL SQ SCH ×2 (06:06→17:06)
[2019-11-06] MEDS: LOSARTAN POTASSIUM 50 MG TABLET PO SCH (09:03)
--- NOTE | 2019-11-06 12:36 | PN ---
Progress Note, Physician History of Present Illness: pt seen/ examined s/p biopsy Pain ++-- Rectal area -- Likely due to pelvic mass +Constipation-- has BM yesterday - Current Medication List Current Medications: Active Medications Atorvastatin Calcium (Lipitor -) 10 mg PO HS [facility] Last Admin: 11/05/19 21:44 Dose: 10 mg Documented by: Bisacodyl (Dulcolax Suppository -) 10 mg [place] PRN PRN PRN Reason: CONSTIPATION Last Admin: 11/05/19 12:00 Dose: 10 mg Documented by: Docusate Sodium (Colace -) 100 mg PO TID [facility] Last Admin: 11/06/19 05:32 Dose: 100 mg Documented by: Insulin Aspart ([facility]olog Vial Sliding Scale -) [facility] Protocol Last Admin: 11/06/19 06:06 Dose: Not Given Documented by: Losartan Potassium (Cozaar -) 50 mg PO DAILY [facility] Last Admin: 11/06/19 09:03 Dose: 50 mg Documented by: Morphine Sulfate (Morphine Sulfate) 4 mg IVPUSH Q6H PRN PRN Reason: PAIN LEVEL 7-10 Last Admin: 11/06/19 05:32 Dose: 4 mg Documented by: Morphine Sulfate (Ms Contin -) 15 mg PO BID [facility] Oxycodone HCl (Roxicodone -) 10 mg PO Q4H PRN PRN Reason: PAIN LEVEL 4 - 6 Last Admin: 11/06/19 08:59 Dose: 10 mg Documented by: Polyethylene Glycol (Miralax (For Daily Use) -) 17 gm PO DAILY PRN PRN Reason: CONSTIPATION Last Admin: 11/02/19 16:53 Dose: 17 grams Documented by: Senna (Senna -) 2 tab PO HS PRN PRN Reason: CONSTIPATION Last Admin: 11/05/19 21:44 Dose: 2 tab Documented by: Sodium Phosphate (Fleet Adult Rectal Enema -) 133 ml RC DAILY PRN PRN Reason: CONSTIPATION Tamsulosin HCl (Flomax -) 0.4 mg PO [facility] Last Admin: 11/05/19 21:44 Dose: 0.4 mg Documented by: - Objective Vital Signs: Vital Signs Temperature 98.5 F 11/06/19 10:00 Pulse Rate 92 H 11/06/19 10:00 Respiratory Rate 18 09/13/20 10:00 Blood Pressure 126/79 11/06/19 10:00 O2 Sat by Pulse Oximetry (%) 98 11/06/19 10:00 Constitutional: Yes: No Distress Neck: Yes: Supple Cardiovascular: Yes: Regular Rate and Rhythm Respiratory: Yes: CTA Bilaterally Gastrointestinal: Yes: Soft Edema: No Neurological: Yes: Alert Psychiatric: Yes: Alert Labs: CBC, BMP 11/04/19 06:20 11/04/19 06:20 INR, PTT INR 0.97 (0.83-1.09) 11/01/19 17:10 Problem List - Problems (1) Metastasis to liver of unknown origin Code(s): C78.7 - SECONDARY MALIG NEOPLASM OF LIVER AND INTRAHEPATIC BILE DUCT; C80.1 - MALIGNANT (PRIMARY) NEOPLASM, UNSPECIFIED Assessment/Plan Discussed in detail with RN. Pain control Add MS Contin Biopsy done-- Result pending Fleet enema prn laxatives Markers noted- ok will follow
[2019-11-06] MEDS: morphine SO4 SUSTAINED ACTING 15 MG TABLET.SA PO SCH ×2 (12:45→21:22)
[2019-11-06] MEDS: ATORVASTATIN CA 10 MG TABLET (FP) PO SCH (21:22)
[2019-11-06] MEDS: TAMSULOSIN HCL 0.4 MG CAP PO SCH (21:22)
[2019-11-06] MEDS: SENNOSIDES 8.6MG TABLET (FP) PO PRN (21:22)
[2019-11-07] MEDS: DOCUSATE SODIUM 100 MG CAPSULE (FP) PO SCH ×3 (05:40→21:03)
[2019-11-07] MEDS: morphine SULFATE 4 MG/ML VIAL IVPUSH PRN ×3 (05:41→18:29)
[2019-11-07] MEDS: INSULIN SLIDING SCALE (NOVOLOG) 1 VIAL SQ SCH ×2 (06:34→16:53)
[2019-11-07] MEDS ORDERED: INSULIN (NOVOLOG) ASPART 100 UNITS/ML 10ML VIAL ONE ×2 (06:36→16:25)
[2019-11-07] MEDS: POLYETHYLENE GLYCOL 3350 119 GM BTL PO PRN (09:37)
[2019-11-07] MEDS: morphine SO4 SUSTAINED ACTING 15 MG TABLET.SA PO SCH ×2 (09:38→21:04)
[2019-11-07] MEDS: LOSARTAN POTASSIUM 50 MG TABLET PO SCH (09:40)
--- NOTE | 2019-11-07 11:53 | PN ---
Progress Note, Physician History of Present Illness: Seen and examined at the bedside still has pain in the lower abdomen/pelvis no sob, cp, fever, chills, N/V/D making urine via foely - Current Medication List Current Medications: Active Medications Atorvastatin Calcium (Lipitor -) 10 mg PO HS [facility] Last Admin: 11/06/19 21:22 Dose: 10 mg Documented by: Bisacodyl (Dulcolax Suppository -) 10 mg IN PRN PRN PRN Reason: CONSTIPATION Last Admin: 11/05/19 12:00 Dose: 10 mg Documented by: Docusate Sodium (Colace -) 100 mg PO TID [facility] Last Admin: 11/07/19 05:40 Dose: 100 mg Documented by: Insulin Aspart (Novolog Vial Sliding Scale -) 1 vial SQ BIDAC [facility]; Protocol Last Admin: 11/07/19 06:34 Dose: 2 units Documented by: Losartan Potassium (Cozaar -) 50 mg PO DAILY [facility] Last Admin: 11/07/19 09:40 Dose: 50 mg Documented by: Morphine Sulfate (Ms Contin -) 15 mg PO BID [facility] Last Admin: 11/07/19 09:38 Dose: 15 mg Documented by: Morphine Sulfate (Morphine Sulfate) 4 mg IVPUSH Q6H PRN PRN Reason: PAIN LEVEL 7 - 10 Last Admin: 11/07/19 05:41 Dose: 4 mg Documented by: Polyethylene Glycol (Miralax (For Daily Use) -) 17 gm PO DAILY PRN PRN Reason: CONSTIPATION Last Admin: 11/07/19 09:37 Dose: 17 grams Documented by: Senna (Senna -) 2 tab PO HS PRN PRN Reason: CONSTIPATION Last Admin: 11/06/19 21:22 Dose: 2 tab Documented by: Sodium Phosphate (Fleet Adult Rectal Enema -) 133 ml RC DAILY PRN PRN Reason: CONSTIPATION Tamsulosin HCl (Flomax -) 0.4 mg PO [facility] Last Admin: 11/06/19 21:22 Dose: 0.4 mg Documented by: - Objective Vital Signs: Vital Signs Temperature 98.4 F 11/07/19 05:45 Pulse Rate 90 11/07/19 10:00 Respiratory Rate 18 11/07/19 10:00 Blood Pressure 127/72 11/07/19 10:00 O2 Sat by Pulse Oximetry (%) 93 L 11/07/19 10:00 Constitutional: Yes: No Distress, Calm HENT: Yes: Atraumatic Neck: Yes: Supple Cardiovascular: Yes: Regular Rate and Rhythm Respiratory: Yes: Regular Gastrointestinal: Yes: Soft. No: Tenderness Genitourinary: Yes: García Present Extremities: No: Cyanosis Edema: No Neurological: Yes: Alert Labs: CBC, BMP 11/04/19 06:20 11/04/19 06:20 INR, PTT INR 0.97 (0.83-1.09) 11/01/19 17:10 Assessment/Plan 64 year old male with history of hypertension, hyperlipidemia and DM type 2 who presented with worsening pelvic pain over 2 months and found to have multiple lesions in lung/abdomen and pelvis consistent with metastatic disease and elevated Cr levels. 1. Acute kidney injury in setting in NSAID use vs. CKD (prior reported Cr values ~1.4) 2. Suspected metastatic disease with unclear origin 3. Hypertension 4. DM Renal function improved but no BMP reported today. Ordered BMP for today. Imaging of the abdomen did not show evidence of hydronephrosis to suggest a obstructive process. Pt does reports history of poorly functioning right kidney? arterial thrombosis/stenosis? Oral intake as tolerated s/p biopsy of pelvic mass, awaiting results. Can continue Losartan for now Avoid further NSAIDs if possible Trend renal function and electrolytes daily Thank you Mickey Zarate DO
--- NOTE | 2019-11-07 12:18 | PN ---
Progress Note, Physician History of Present Illness: pt seen/ examined still having pain issues-- requiring i/v morphine Pain ++-- Rectal area -- Likely due to pelvic mass Having BM now - Current Medication List Current Medications: Active Medications Atorvastatin Calcium (Lipitor -) 10 mg PO HS [facility] Last Admin: 11/06/19 21:22 Dose: 10 mg Documented by: Bisacodyl (Dulcolax Suppository -) 10 mg [place] PRN PRN PRN Reason: CONSTIPATION Last Admin: 11/05/19 12:00 Dose: 10 mg Documented by: Docusate Sodium (Colace -) 100 mg PO TID [facility] Last Admin: 11/07/19 05:40 Dose: 100 mg Documented by: Insulin Aspart ([facility]iding [facility] -) [facility] Protocol Last Admin: 11/07/19 06:34 Dose: 2 units Documented by: Losartan Potassium (Cozaar -) 50 mg PO DAILY [facility] Last Admin: 11/07/19 09:40 Dose: 50 mg Documented by: Morphine Sulfate (Ms Contin -) 15 mg PO BID [facility] Last Admin: 11/07/19 09:38 Dose: 15 mg Documented by: Morphine Sulfate (Morphine Sulfate) 4 mg IVPUSH Q6H PRN PRN Reason: PAIN LEVEL 7 - 10 Last Admin: 11/07/19 12:14 Dose: 4 mg Documented by: Polyethylene Glycol (Miralax (For Daily Use) -) 17 gm PO DAILY PRN PRN Reason: CONSTIPATION Last Admin: 11/07/19 09:37 Dose: 17 grams Documented by: Senna (Senna -) 2 tab PO HS PRN PRN Reason: CONSTIPATION Last Admin: 11/06/19 21:22 Dose: 2 tab Documented by: Sodium Phosphate (Fleet Adult Rectal Enema -) 133 ml RC DAILY PRN PRN Reason: CONSTIPATION Tamsulosin HCl (Flomax -) 0.4 mg PO [facility] Last Admin: 11/06/19 21:22 Dose: 0.4 mg Documented by: - Objective Vital Signs: Vital Signs Temperature 98.4 F 11/07/19 05:45 Pulse Rate 90 11/07/19 10:00 Respiratory Rate 18 11/07/19 10:00 Blood Pressure 127/72 11/07/19 10:00 O2 Sat by Pulse Oximetry (%) 93 L 11/07/19 10:00 Constitutional: Yes: No Distress, Obese Neck: Yes: Supple Cardiovascular: Yes: Regular Rate and Rhythm Respiratory: Yes: CTA Bilaterally Gastrointestinal: Yes: Soft Genitourinary: Yes: García Present Edema: No Neurological: Yes: Alert Labs: CBC, BMP 11/04/19 06:20 11/04/19 06:20 INR, PTT INR 0.97 (0.83-1.09) 11/01/19 17:10 Problem List - Problems (1) Metastasis to liver of unknown origin Code(s): C78.7 - SECONDARY MALIG NEOPLASM OF LIVER AND INTRAHEPATIC BILE DUCT; C80.1 - MALIGNANT (PRIMARY) NEOPLASM, UNSPECIFIED Assessment/Plan Discussed in detail with RN. Pain control Added MS Contin Biopsy done-- Result pending Bone scan report pending also Fleet enema prn laxatives Markers noted- ok will follow d/w Dr. Torres also today
[2019-11-07 13:23] LABS: CALCIUM 9.7 mg/dL (8.5-10.1); CREATININE 1.3 mg/dL (0.55-1.3)
[2019-11-07] MEDS: BISACODYL 10 MG SUPP.RECT PR PRN (20:38)
[2019-11-07] MEDS: ATORVASTATIN CA 10 MG TABLET (FP) PO SCH (21:04)
[2019-11-07] MEDS: TAMSULOSIN HCL 0.4 MG CAP PO SCH (21:04)
[2019-11-08] MEDS: morphine SULFATE 4 MG/ML VIAL IVPUSH PRN ×4 (00:13→19:55)
[2019-11-08] MEDS: DOCUSATE SODIUM 100 MG CAPSULE (FP) PO SCH ×3 (06:10→21:47)
[2019-11-08] MEDS: INSULIN SLIDING SCALE (NOVOLOG) 1 VIAL SQ SCH ×2 (06:12→16:46)
[2019-11-08] MEDS: POLYETHYLENE GLYCOL 3350 119 GM BTL PO PRN (09:11)
[2019-11-08] MEDS: morphine SO4 SUSTAINED ACTING 15 MG TABLET.SA PO SCH ×2 (09:11→21:46)
[2019-11-08] MEDS: LOSARTAN POTASSIUM 50 MG TABLET PO SCH (09:11)
[2019-11-08] MEDS ORDERED: MINERAL OIL ENEMA 133 ML ENEMA RC PRN (10:38)
[2019-11-08] MEDS ORDERED: ONDANSETRON 4 MG/2 ML VIAL IVPB PRN (11:33)
--- NOTE | 2019-11-08 12:05 | PN ---
Progress Note, Physician History of Present Illness: Seen and examined at the bedside at the bedside reports that he continues to have pain and nausea no sob, cp, fever, chills making urine via foely - Current Medication List Current Medications: Active Medications Atorvastatin Calcium (Lipitor -) 10 mg PO HS [facility] Last Admin: 11/07/19 21:04 Dose: 10 mg Documented by: Bisacodyl (Dulcolax Suppository -) 10 mg [place] PRN PRN PRN Reason: CONSTIPATION Last Admin: 11/07/19 20:38 Dose: 10 mg Documented by: Docusate Sodium (Colace -) 100 mg PO TID [facility] Last Admin: 11/08/19 06:10 Dose: 100 mg Documented by: Insulin Aspart (Novolog Vial Sliding Scale -) 1 vial SQ BIDAC [facility]; Protocol Last Admin: 11/08/19 06:12 Dose: Not Given Documented by: Losartan Potassium (Cozaar -) 50 mg PO DAILY [facility] Last Admin: 11/08/19 09:11 Dose: 50 mg Documented by: Mineral Oil (Fleet Mineral Oil Rectal Enema -) 133 ml RC DAILY PRN PRN Reason: CONSTIPATION Morphine Sulfate (Ms Contin -) 15 mg PO BID [facility] Last Admin: 11/08/19 09:11 Dose: 15 mg Documented by: Morphine Sulfate (Morphine Sulfate) 4 mg IVPUSH Q6H PRN PRN Reason: PAIN LEVEL 7 - 10 Last Admin: 11/08/19 06:10 Dose: 4 mg Documented by: Ondansetron HCl (Zofran Injection) 8 mg IVPB Q6H PRN PRN Reason: NAUSEA Last Admin: 11/08/19 11:49 Dose: 8 mg Documented by: Polyethylene Glycol (Miralax (For Daily Use) -) 17 gm PO DAILY PRN PRN Reason: CONSTIPATION Last Admin: 11/08/19 09:11 Dose: 17 grams Documented by: Senna (Senna -) 2 tab PO HS PRN PRN Reason: CONSTIPATION Last Admin: 11/06/19 21:22 Dose: 2 tab Documented by: Tamsulosin HCl (Flomax -) 0.4 mg PO HS [facility] Last Admin: 11/07/19 21:04 Dose: 0.4 mg Documented by: - Objective Vital Signs: Vital Signs Temperature 98.7 F 11/08/19 05:44 Pulse Rate 80 11/08/19 05:44 Respiratory Rate 18 11/08/19 05:44 Blood Pressure 104/72 11/08/19 05:44 O2 Sat by Pulse Oximetry (%) 96 11/08/19 05:44 Constitutional: Yes: No Distress HENT: Yes: Atraumatic Neck: Yes: Supple Cardiovascular: Yes: Regular Rate and Rhythm Respiratory: Yes: Regular Gastrointestinal: Yes: Soft, Tenderness Extremities: No: Cold, Cool, Cyanosis Edema: No Neurological: Yes: Alert Labs: CBC, BMP 11/04/19 06:20 11/07/19 12:30 INR, PTT INR 0.97 (0.83-1.09) 11/01/19 17:10 Assessment/Plan 64 year old male with history of hypertension, hyperlipidemia and DM type 2 who presented with worsening pelvic pain over 2 months and found to have multiple lesions in lung/abdomen and pelvis consistent with metastatic disease and elevated Cr levels. 1. Acute kidney injury in setting in NSAID use vs. CKD (prior reported Cr values ~1.4) 2. Suspected metastatic disease with unclear origin 3. Hypertension 4. DM Renal function improved/stable. Check BMP in AM Imaging of the abdomen did not show evidence of hydronephrosis to suggest a obstructive process. Biopsy and Bone scan results pending. Added zofran for nasuea. Pain control. Oncology follow up. Can continue Losartan for now Avoid further NSAIDs if possible Trend renal function and electrolytes daily Thank you Mickey Zarate DO
--- NOTE | 2019-11-08 12:50 | PN ---
Progress Note (short form) - Note Progress Note: has pain in pelvic area and when he has a bm Vital Signs - 24 hr 11/07/19 11/07/19 11/07/19 21:00 21:05 22:00 Temperature 98.5 F 98.1 F Pulse Rate 91 H 89 Respiratory 18 18 19 Rate Blood Pressure 112/57 L 122/69 O2 Sat by Pulse 97 97 94 L Oximetry (%) 11/08/19 11/08/19 11/08/19 05:44 09:00 10:00 Temperature 98.7 F 98.2 F Pulse Rate 80 109 H Respiratory 18 18 Rate Blood Pressure 104/72 121/69 O2 Sat by Pulse 96 93 L 93 L Oximetry (%) 11/08/19 14:25 Temperature 98.7 F Pulse Rate 111 H Respiratory 18 Rate Blood Pressure 102/62 O2 Sat by Pulse 93 L Oximetry (%) Current Medications Generic Name Dose Route Start Last Admin Trade Name Freq PRN Reason Stop Dose Admin Atorvastatin Calcium 10 mg 11/01/19 22:00 11/07/19 21:04 Lipitor - PO 10 mg HS DANY Administration Bisacodyl 10 mg 11/05/19 10:09 11/07/19 20:38 Dulcolax Suppository - ID 10 mg PRN PRN Administration CONSTIPATION Docusate Sodium 100 mg 11/03/19 14:00 11/08/19 13:44 Colace - PO 100 mg TID DANY Administration Insulin Aspart 1 vial 11/02/19 07:00 11/08/19 06:12 Novolog Vial Sliding Scale - SQ Not Given BIDAC [facility] Protocol Losartan Potassium 50 mg 11/02/19 10:00 11/08/19 09:11 Cozaar - PO 50 mg DAILY DANY Administration Mineral Oil 133 ml 11/08/19 10:38 Fleet Mineral Oil Rectal Enema - RC DAILY PRN CONSTIPATION Morphine Sulfate 15 mg 11/06/19 12:45 11/08/19 09:11 Ms Contin - PO 15 mg BID DANY Administration Morphine Sulfate 4 mg 11/06/19 19:56 11/08/19 13:41 Morphine Sulfate IVPUSH 4 mg Q6H PRN Administration PAIN LEVEL 7 - 10 Ondansetron HCl 8 mg 11/08/19 11:33 11/08/19 11:49 Zofran Injection IVPB 8 mg Q6H PRN Administration NAUSEA Polyethylene Glycol 17 gm 11/02/19 13:06 11/08/19 09:11 Miralax (For Daily Use) - PO 17 grams DAILY PRN Administration CONSTIPATION Senna 2 tab 11/03/19 13:53 11/06/19 21:22 Senna - PO 2 tab HS PRN Administration CONSTIPATION Tamsulosin HCl 0.4 mg 11/01/19 22:00 11/07/19 21:04 Flomax - PO 0.4 mg HS DANY Administration Laboratory Results - last 24 hr 11/07/19 11/08/19 16:22 06:06 POC Glucometer 174 142 S1 S2 RRR Lungs clear Abd- soft, nT No edema PLAN pain control Oncology eval noted biopsy done-- pathology pending DVT prophylaxis CT chest noted skeletal survey ordered-- noted results pelvic MRI not approved Problem List - Problems (1) COPD (chronic obstructive pulmonary disease) Code(s): J44.9 - CHRONIC OBSTRUCTIVE PULMONARY DISEASE, UNSPECIFIED (2) Metastatic cancer Code(s): C79.9 - SECONDARY MALIGNANT NEOPLASM OF UNSPECIFIED SITE Qualifiers: Area of secondary neoplastic involvement: unspecified site Qualified Code(s): C79.9 - Secondary malignant neoplasm of unspecified site (3) Rectal pain Code(s): K62.89 - OTHER SPECIFIED DISEASES OF ANUS AND RECTUM (4) Bleeding internal hemorrhoids Code(s): K64.8 - OTHER HEMORRHOIDS
[2019-11-08] MEDS ORDERED: diazePAM 5 MG TABLET PO ONE (13:24)
[2019-11-08] MEDS: TAMSULOSIN HCL 0.4 MG CAP PO SCH (21:47)
[2019-11-08] MEDS: ATORVASTATIN CA 10 MG TABLET (FP) PO SCH (21:47)
[2019-11-08] MEDS: SENNOSIDES 8.6MG TABLET (FP) PO PRN (21:47)
[2019-11-09] MEDS: morphine SULFATE 4 MG/ML VIAL IVPUSH PRN (04:21)
[2019-11-09] MEDS: INSULIN SLIDING SCALE (NOVOLOG) 1 VIAL SQ SCH (06:07)
[2019-11-09] MEDS: DOCUSATE SODIUM 100 MG CAPSULE (FP) PO SCH ×2 (06:07→14:21)
[2019-11-09 09:07] LABS: BASO % 0.2 % (0-2.0); EOS % 1.4 % (0-4.5); HEMATOCRIT 38.1 % (35.4-49); HEMOGLOBIN 12.7 GM/dL (11.7-16.9); LYMPH % 22.9 % (8-40); MCH 29.6 pg (25.7-33.7); MCHC 33.3 g/dl (32.0-35.9); MEAN CELL VOLUME 88.7 fl (80-96); MEAN PLT VOLUME 9.1 fl (7.5-11.1); MONO % 10.3 % (3.8-10.2); NEUT % 65.2 % (42.8-82.8); PLATELET COUNT 249 K/MM3 (134-434); RBC 4.29 M/mm3 (4.00-5.60); RDW 12.7 % (11.9-15.9); WHITE BLOOD COUNT 6.2 K/mm3 (4.0-10.0)
[2019-11-09] MEDS: POLYETHYLENE GLYCOL 3350 119 GM BTL PO PRN (09:24)
[2019-11-09] MEDS: morphine SO4 SUSTAINED ACTING 15 MG TABLET.SA PO SCH (09:25)
[2019-11-09] MEDS: LOSARTAN POTASSIUM 50 MG TABLET PO SCH (09:26)
[2019-11-09 09:38] LABS: POTASSIUM 5.4 mmol/L (3.5-5.1)
[2019-11-09 10:12] LABS: ALBUMIN 3.3 g/dl (3.4-5.0); BILIRUBIN,TOTAL 0.6 mg/dL (0.2-1); BLOOD UREA NITROGEN 22.4 mg/dL (7-18); CALCIUM 9.9 mg/dL (8.5-10.1); CREATININE 1.3 mg/dL (0.55-1.3); MAGNESIUM 2.3 mg/dL (1.8-2.4); PHOSPHOROUS 3.1 mg/dL (2.5-4.9); TOT PROT 6.5 g/dl (6.4-8.2)
[2019-11-09] MEDS ORDERED: SODIUM POLYSTYRENE SULFONATE 15 GM/60 ML BOTTLE PO ONE (13:34)
--- NOTE | 2019-11-09 13:42 | DS ---
Physical Examination Vital Signs: Vital Signs Temperature 98.0 F 11/09/19 10:00 Pulse Rate 87 11/09/19 10:00 Respiratory Rate 20 11/09/19 10:00 Blood Pressure 102/61 11/09/19 10:00 O2 Sat by Pulse Oximetry (%) 96 11/09/19 10:00 Constitutional: Yes: No Distress Cardiovascular: Yes: Regular Rate and Rhythm Respiratory: Yes: CTA Bilaterally Gastrointestinal: Yes: Normal Bowel Sounds, Soft. No: Tenderness Edema: No Labs: CBC, BMP 11/09/19 07:20 11/09/19 07:20 Discharge Summary Problems reviewed: Yes Reason For Visit: METASTATIC MALIGNANT NEOPLASM RECTAL PAIN Current Active Problems COPD (chronic obstructive pulmonary disease) (Acute) Metastasis to liver of unknown origin (Acute) Metastatic cancer (Acute) Rectal pain (Acute) Hospital Course: Admitted for intractable rectal pain and difficulty urination he had jackson placed for urinary retetntion CT ABD/PELVIS - showed large mass in pelvis and diffuse metastatic diseas on liver and lungs He was seen by Oncology, ,Renal and GI skeletal survey negative for bone mets Tumor markers were done and were not elevated he had biopsy of pelvic mass , still pending Pt's pain is better controlled with MS contin-- MSIR added as needed for breakthrough oain D/w She would like pt to be referred to [facility] will be back in another 2 days-- in the meantime, he is discharged home with jackson leg bag, pain meds as needed with stool softeners Will make referral to [facility] spoke with Oncology today stable for dc home Condition: Guarded - Instructions Referrals: Ebony Vincent MD [Primary Care Provider] - Disposition: HOME - Home Medications Comprehensive Discharge Medication List: Ambulatory Orders Aspirin [ASA -] 81 mg PO DAILY 11/04/13 Glyburide/Metformin HCl [Glyburide-Metformin 5-500 mg] 1 each PO TID 11/04/13 Losartan Potassium 50 mg PO DAILY 11/04/13 Simvastatin [Zocor -] 20 mg PO HS 11/04/13 Tamsulosin HCl [Flomax -] 0.4 mg PO HS #30 capsule 11/04/13 Hydrocortisone 2.5% Topical Cr [Anusol-Hc -] 1 applic RC BID #1 tube 10/28/19 Lidocaine [Hemorrhoidal Relief] 30 gm TP Q4HWA PRN #1 cream..g. 10/28/19 Sennosides/Docusate Sodium [Senokot-S Tablet] 2 each PO HS PRN 7 Days #14 tablet 10/28/19 Docusate Sodium [Colace -] 100 mg PO TID #90 capsule 11/09/19 Morphine *Immediate Release* [Msir -] 30 mg PO Q8H #30 tab MDD 3 11/09/19 Morphine *Sr* [Ms Contin -] 15 mg PO BID #60 tablet.sa MDD 2 11/09/19 Polyethylene Glycol 3350 [Miralax 119 gm Btl -] 17 gm PO DAILY PRN #1 bottle 11/09/19
--- NOTE | 2019-11-09 14:08 | PN ---
Progress Note, Physician History of Present Illness: Seen and examined at the bedside awake and alert pain is much better controlled no sob, cp, fever, chills making urine via foely - Current Medication List Current Medications: Active Medications Atorvastatin Calcium (Lipitor -) 10 mg PO HS [facility] Last Admin: 11/08/19 21:47 Dose: 10 mg Documented by: Bisacodyl (Dulcolax Suppository -) 10 mg [place] PRN PRN PRN Reason: CONSTIPATION Last Admin: 11/07/19 20:38 Dose: 10 mg Documented by: Docusate Sodium (Colace -) 100 mg PO TID [facility] Last Admin: 11/09/19 06:07 Dose: 100 mg Documented by: Insulin Aspart (Novolog Vial Sliding Scale -) [facility] Protocol Last Admin: 11/09/19 06:07 Dose: 2 units Documented by: Losartan Potassium (Cozaar -) 50 mg PO DAILY [facility] Last Admin: 11/09/19 09:26 Dose: 50 mg Documented by: Mineral Oil (Fleet Mineral Oil Rectal Enema -) 133 ml RC DAILY PRN PRN Reason: CONSTIPATION Morphine Sulfate (Ms Contin -) 15 mg PO BID [facility] Last Admin: 11/09/19 09:25 Dose: 15 mg Documented by: Morphine Sulfate (Morphine Sulfate) 4 mg IVPUSH Q6H PRN PRN Reason: PAIN LEVEL 7 - 10 Last Admin: 11/09/19 04:21 Dose: 4 mg Documented by: Ondansetron HCl (Zofran Injection) 8 mg IVPB Q6H PRN PRN Reason: NAUSEA Last Admin: 11/08/19 11:49 Dose: 8 mg Documented by: Polyethylene Glycol (Miralax (For Daily Use) -) 17 gm PO DAILY PRN PRN Reason: CONSTIPATION Last Admin: 11/09/19 09:24 Dose: 17 grams Documented by: Senna (Senna -) 2 tab PO HS PRN PRN Reason: CONSTIPATION Last Admin: 11/08/19 21:47 Dose: 2 tab Documented by: Tamsulosin HCl (Flomax -) 0.4 mg PO HS [facility] Last Admin: 11/08/19 21:47 Dose: 0.4 mg Documented by: - Objective Vital Signs: Vital Signs Temperature 98.0 F 11/09/19 10:00 Pulse Rate 87 11/09/19 10:00 Respiratory Rate 20 16/20 10:00 Blood Pressure 102/61 11/09/19 10:00 O2 Sat by Pulse Oximetry (%) 96 11/09/19 10:00 Constitutional: Yes: No Distress HENT: Yes: Atraumatic Neck: Yes: Supple Cardiovascular: Yes: Regular Rate and Rhythm Respiratory: Yes: Regular, CTA Bilaterally Gastrointestinal: Yes: Soft Edema: No Neurological: Yes: Alert, Oriented Labs: CBC, BMP 11/09/19 07:20 11/09/19 07:20 INR, PTT INR 0.97 (0.83-1.09) 11/01/19 17:10 Assessment/Plan 64 year old male with history of hypertension, hyperlipidemia and DM type 2 who presented with worsening pelvic pain over 2 months and found to have multiple lesions in lung/abdomen and pelvis consistent with metastatic disease and elevated Cr levels. 1. Acute kidney injury in setting in NSAID use vs. CKD (prior reported Cr values ~1.4) 2. Suspected metastatic disease with unclear origin 3. Hypertension 4. DM Renal function stable Imaging of the abdomen did not show evidence of hydronephrosis to suggest a obstructive process. LN biopsy result still pending Bone scan did not show any bone mets Collection of NM material in right kidney likely reflective of reduced function in that kidney which corresponds to history provided by the patient that he was told that his right kidney function was poor. Pain control with non-NSIAD pain medications. Oncology follow up. Can continue Losartan for now Avoid further NSAIDs if possible Trend renal function and electrolytes daily Thank you Mickey Zarate DO
[2019-11-09 15:22] VITALS: BP 116/69; PULSE 95; TEMP 97.8
--- NOTE | 2019-11-09 17:10 | PN ---
Progress Note (short form) - Note Progress Note: He reports pain 9/10 and no BM 3d PE: appears fairly comfortable lungs-cta cvs-reg s1S2 abd-soft,NT ext-no edema IMp: met process, unclear etiol. Tumor markers unremarkable. Awaiting results of bx pelvic LN Would ramp up bowel regimen; re-assess pain level
--- NOTE | 2019-11-11 13:06 | PATH ---
Surgical Pathology Report Patient Name: TERRANCE BAUTISTA Med. Rec. #: [id number] /Age/Gender: 1955 (Age: 64) / M Account: [id number] Location: [address] [place] [address]/[facility] Taken: 11/04/2019 Received: 11/04/2019 Reported: 11/11/2019 Physicians: Stefano Stanton M.D. 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 SEE COMMENT. Comment: Histologic sections show nests and sheets of malignant cells associated with extensive necrosis. The malignant cells show scant cytoplasm, finely granular chromatin, occasional discrete nucleoli, apoptosis, mitosis, and focal nuclear molding. Immunohistochemical stains performed and interpreted at [facility] show the tumor is positive for cytokeratin AE1/3, synaptophysin, CK7, CK20 (patchy), and chromogranin (rare). TTF-1 stain is negative. [facility] [place] ([id number]) and interpreted at [facility] show the tumor is positive for CD56 (patchy), and CDX2 (patchy). Proliferative index is high (Ki-67:~65-70%). Napsin-A, RUDOLPH-3, p40 and uroplakin stains are negative. Above histomorphology and immunophenotype show a High grade neuroendocrine carcinoma with extensive necrosis, most compatible with Small cell carcinoma. Suggest clinical and radiologic correlation. Case seen in intradepartmental review with consensus on diagnosis. Case discussed with Dr. Vincent, 11/11/19. Positive and negative controls (internal if applicable) show appropriate results. Electronically Signed Maggie Reeder M.D. Gross Description Received in formalin labeled "pelvic mass biopsy," is a 1.0 x 0.5 x 0.1 cm aggregate of vital, irregular to cylindrical soft tissue fragments. The formalin is filtered and the specimen is entirely submitted in one cassette. /11/04/2019 saudi/11/04/2019
== END 2019-11-09 18:25 | disposition home or self-care (01) | DRG 424 ==
LOC: JER 15:53 → JERBED 17:09 → J6S 22:17
PROVIDERS: ADMIT Internal Medicine; ATTEND Internal Medicine
PROC: 07BC3ZX Excision of Pelvis Lymphatic, Percutaneous Approach, Diagnostic (ICD-10-PCS; principal; 2019-11-04)
DX: C78.7 Secondary malignant neoplasm of liver and intrahepatic bile duct (principal); C78.00 Secondary malignant neoplasm of unspecified lung; N17.9 Acute kidney failure, unspecified; E11.9 Type 2 diabetes mellitus without complications; E78.5 Hyperlipidemia, unspecified; K64.4 Residual hemorrhoidal skin tags; J44.9 Chronic obstructive pulmonary disease, unspecified; K62.89 Other specified diseases of anus and rectum; K59.00 Constipation, unspecified; R33.9 Retention of urine, unspecified; R19.09 Other intra-abdominal and pelvic swelling, mass and lump; I12.9 Hypertensive chronic kidney disease with stage 1 through stage 4 chronic kidney disease, or unspecified chronic kidney disease; E11.22 Type 2 diabetes mellitus with diabetic chronic kidney disease; N18.9 Chronic kidney disease, unspecified
CPT/HCPCS: 36415; 38505; 71250-TC; 78306-TC; 80048; 80053; 81003; 82105; 82272; 82378; 82565; 82962; 83036; 83615; 83735; 84100; 84153; 84156; 84300; 85025; 85027; 85610; 86301; 87086; 87205; 88305-TC; 88341-TC; 93005; 93010; 99283-25; 99285-25; A9503; J0131; J1644; U0003

== ENCOUNTER 2020-02-17 14:15 | Emergency (ER) | payer OTHER ==
[2020-02-17 14:35] VITALS: TEMP 97.9; BMI 24.1
[2020-02-17 17:08] LABS: CHLORIDE 108 mmol/L (98-107); POTASSIUM 4.8 mmol/L (3.5-5.1); SODIUM 139 mmol/L (136-145)
[2020-02-17 17:10] LABS: ANION GAP 4 MMOL/L (8-16); BLOOD UREA NITROGEN 13.8 mg/dL (7-18); CALCIUM 10.4 mg/dL (8.5-10.1); CO2 28 mmol/L (21-32); GLUCOSE,RANDOM 253 mg/dL (74-106)
[2020-02-17 17:14] LABS: BASO % 0.4 % (0-2.0); EOS % 0.1 % (0-4.5); HEMATOCRIT 26.2 % (35.4-49); MCH 27.5 pg (25.7-33.7); MCHC 30.7 g/dl (32.0-35.9); MEAN CELL VOLUME 89.5 fl (80-96); MEAN PLT VOLUME 9.1 fl (7.5-11.1); MONO % 8.7 % (3.8-10.2); NEUT % 81.8 % (42.8-82.8); PLATELET COUNT 208 K/MM3 (134-434); RBC 2.92 M/mm3 (4.00-5.60); RDW 18.5 % (11.9-15.9); WHITE BLOOD COUNT 5.1 K/mm3 (4.0-10.0)
[2020-02-17 17:14] LABS: CREATININE 1.4 mg/dL (0.55-1.3); SGOT/AST 50 U/L (15-37); SGPT/ALT 13 U/L (13-61)
[2020-02-17 17:15] LABS: BILIRUBIN,TOTAL 0.3 mg/dL (0.2-1)
[2020-02-17 17:17] LABS: ALK PHOS 58 U/L (45-117)
[2020-02-17 17:53] VITALS: BP 121/70; PULSE 67
== END 2020-02-17 18:09 | disposition left against medical advice (07) ==
LOC: JER 14:15
DX: R06.02 Shortness of breath (principal); R09.02 Hypoxemia
CPT/HCPCS: 36415; 71045-TC-FY; 80053; 82550; 84484; 85025; 93005; 93010; 99285-25